=== PATIENT | female | born 1955 | race American Indian/Alaskan Native ===

== ENCOUNTER 2016-12-13 23:54 | Inpatient (IN) | payer MEDICARE ==
[2016-12-14] MEDS ORDERED: TRIDIL DRIP 50MG/250ML 50 MG/250 ML BOTTLE ONE ×2 (00:06→04:03)
[2016-12-14] MEDS: TRIDIL DRIP 50MG/250ML 50 MG/250 ML BOTTLE IV ONE ×2 (00:12→04:08)
--- NOTE | 2016-12-14 00:19 | Emergency Department Report ---
ED Shortness of Breath HPI - General Chief Complaint: Dyspnea/Respdistress Stated Complaint: RESPIRATORY DISTRESS Time Seen by Provider: 12/14/16 00:16 Source: family, EMS (verbal report received from EMS.ems notes not available at time of chart dictation), RN notes reviewed Mode of arrival: Stretcher Limitations: Other (patient in severe respiratory distress upon arrival) - History of Present Illness Initial Comments: This is a 61-year-old female, the patient is previously unknown to this provider , she has a past medical history of end-stage renal disease on dialysis, typically gets dialyzed Tuesday, Tuesday, Tuesday, patient reports missing last dialysis session, brought to the hospital by EMS in severe respiratory distress. Patient had JVD, crackles and rales, was tachypnea, with work of breathing that was severe. Patient started empirically on BiPAP therapy, high dose nitroglycerin therapy, with multiple IV boluses administered by myself of IV nitroglycerin; 500 g, 600 g 3. The patient improved, blood pressure went from the low 200s to the 150s, patient's work of breathing improved, her diaphoresis improved, still having some crackles and rales. Case discussed with nephrology on-call, Dr. Pablito See, who is going to arrange for emergent dialysis, patient does make urine, so he recommended 100 mg of Lasix. Case presented to the Hospital physician, Dr. Luo, and she accepted the patient to her service. Presently, the patient is on BiPAP therapy, endorses that she feels improved, and is still on a nitroglycerin drip. She is not having chest pain, and she was able to tell me that her body service team member Dr. Ani Echeverria. She further informed me that she missed her dialysis on Tuesday. MD Complaint: shortness of breath -: Gradual Consistency: constant Improves With: upright position, medication Worsens With: lying flat, exertion Known History Of: other (esrd) Context: other (noncompliance with dialysis therapy) - Related Data Home Medications Medication Instructions Recorded Confirmed Last Taken Aspirin [Adult Low Dose Aspirin EC] 81 mg PO DAILY 12/15/16 12/15/16 12/13/16 Metoprolol Tartrate 25 mg PO BID 12/15/16 12/15/16 12/13/16 Valsartan [Diovan] 320 mg PO DAILY 12/15/16 12/15/16 12/13/16 Allergies Allergy/AdvReac Type Severity Reaction Status Date / Time No Known Allergies Allergy Verified 12/14/16 00:12 ED Review of Systems ROS: Stated complaint: RESPIRATORY DISTRESS Other details as noted in HPI Comment: Unobtainable due to pts medical conditions Constitutional: malaise. denies: fever Eyes: denies: vision change Respiratory: shortness of breath Cardiovascular: edema. denies: chest pain Gastrointestinal: vomiting Genitourinary: as per HPI Musculoskeletal: as per HPI Skin: as per HPI Neurological: as per HPI Psychiatric: as per HPI ED Past Medical Hx - Past Medical History Previous Medical History?: Yes Hx Hypertension: Yes Hx Renal Disease: Yes (HD q mon, wed. fri) Additional medical history: PE - Surgical History Past Surgical History?: Yes Additional Surgical History: Shunt - Social History Smoking Status: Current Every Day Smoker - Medications Home Medications: Home Medications Medication Instructions Recorded Confirmed Last Taken Type Aspirin [Adult Low Dose Aspirin EC] 81 mg PO DAILY 12/15/16 12/15/16 12/13/16 History Metoprolol Tartrate 25 mg PO BID 12/15/16 12/15/16 12/13/16 History Valsartan [Diovan] 320 mg PO DAILY 12/15/16 12/15/16 12/13/16 History ED Physical Exam - General Limitations: Other General appearance: alert, in distress - Head Head exam: Present: atraumatic, normocephalic - Eye Eye exam: Present: normal appearance - ENT ENT exam: Present: normal orophraynx, mucous membranes moist - Neck Neck exam: Present: normal inspection, full ROM - Respiratory Respiratory exam: Present: respiratory distress, rales, rhonchi, accessory muscle use - Cardiovascular Cardiovascular Exam: Present: normal rhythm, tachycardia, normal heart sounds, JVD (4-5 cm of jugular venous distention bilaterally). Absent: systolic murmur , diastolic murmur, rubs, gallop - GI/Abdominal GI/Abdominal exam: Present: soft, normal bowel sounds. Absent: distended, tenderness, guarding, rebound, rigid, pulsatile mass - Extremities Exam Extremities exam: Present: normal inspection, full ROM, normal capillary refill , pedal edema, other (left upper extremity AV fistula, appropriate thrill.). Absent: calf tenderness - Back Exam Back exam: Present: normal inspection - Neurological Exam Neurological exam: Present: alert, oriented X3, other (Extraocular movements intact. Tongue midline. No facial droop. Facial sensation intact to light touch in the V1, V2, V3 distribution bilaterally. 5 and 5 strength in 4 extremities.. Sensation is intact to light touch in 4 extremities.). Absent: motor sensory deficit - Psychiatric Psychiatric exam: Present: normal affect, normal mood - Skin Skin exam: Present: warm, dry, intact, normal color. Absent: rash ED Course Vital Signs 12/14/16 12/14/16 12/14/16 00:00 00:06 00:10 Temperature Pulse Rate 104 H 95 H 88 Respiratory 24 34 H 34 H Rate Blood Pressure 193/101 193/101 171/95 Blood Pressure 193/101 [Right] O2 Sat by Pulse 99 98 98 Oximetry O2 Sat by Pulse Oximetry [ Anterior Bilateral Throughout] 12/14/16 12/14/16 12/14/16 00:15 00:20 00:26 Temperature Pulse Rate 86 85 80 Respiratory 34 H 38 H 31 H Rate Blood Pressure 170/93 170/93 170/93 Blood Pressure [Right] O2 Sat by Pulse 99 100 99 Oximetry O2 Sat by Pulse Oximetry [ Anterior Bilateral Throughout] 12/14/16 12/14/16 12/14/16 00:30 00:36 00:40 Temperature 98 F Pulse Rate 81 77 76 Respiratory 34 H 27 H 29 H Rate Blood Pressure 177/86 177/86 177/86 Blood Pressure 177/86 [Right] O2 Sat by Pulse 100 99 100 Oximetry O2 Sat by Pulse Oximetry [ Anterior Bilateral Throughout] 12/14/16 12/14/16 12/14/16 00:46 00:50 00:56 Temperature Pulse Rate 78 77 77 Respiratory 31 H 29 H 28 H Rate Blood Pressure 177/86 168/82 168/82 Blood Pressure [Right] O2 Sat by Pulse 100 100 99 Oximetry O2 Sat by Pulse Oximetry [ Anterior Bilateral Throughout] 12/14/16 12/14/16 12/14/16 00:58 01:00 01:05 Temperature Pulse Rate 78 74 Respiratory 29 H 30 H 26 H Rate Blood Pressure 168/82 164/80 Blood Pressure [Right] O2 Sat by Pulse 97 99 98 Oximetry O2 Sat by Pulse Oximetry [ Anterior Bilateral Throughout] 12/14/16 12/14/16 12/14/16 01:10 01:16 01:20 Temperature Pulse Rate 75 76 74 Respiratory 25 H 22 21 Rate Blood Pressure 164/80 154/78 163/88 Blood Pressure [Right] O2 Sat by Pulse 99 99 100 Oximetry O2 Sat by Pulse Oximetry [ Anterior Bilateral Throughout] 12/14/16 12/14/16 12/14/16 01:26 01:30 01:36 Temperature Pulse Rate 74 76 75 Respiratory 23 19 25 H Rate Blood Pressure 159/77 168/74 146/69 Blood Pressure [Right] O2 Sat by Pulse 100 100 100 Oximetry O2 Sat by Pulse Oximetry [ Anterior Bilateral Throughout] 12/14/16 12/14/16 12/14/16 01:40 01:46 01:50 Temperature Pulse Rate 74 78 73 Respiratory 23 28 H 23 Rate Blood Pressure 147/75 149/73 152/77 Blood Pressure [Right] O2 Sat by Pulse 100 99 100 Oximetry O2 Sat by Pulse Oximetry [ Anterior Bilateral Throughout] 12/14/16 12/14/16 12/14/16 01:56 02:00 02:05 Temperature Pulse Rate 76 73 71 Respiratory 26 H 25 H 24 Rate Blood Pressure 153/80 143/76 143/70 Blood Pressure [Right] O2 Sat by Pulse 100 100 100 Oximetry O2 Sat by Pulse Oximetry [ Anterior Bilateral Throughout] 12/14/16 12/14/16 12/14/16 02:06 02:10 02:16 Temperature Pulse Rate 76 73 72 Respiratory 24 26 H 23 Rate Blood Pressure 151/74 161/71 145/76 Blood Pressure [Right] O2 Sat by Pulse 100 100 100 Oximetry O2 Sat by Pulse Oximetry [ Anterior Bilateral Throughout] 12/14/16 12/14/16 12/14/16 02:20 02:26 02:30 Temperature Pulse Rate 72 78 84 Respiratory 25 H 25 H 31 H Rate Blood Pressure 145/78 151/76 149/76 Blood Pressure [Right] O2 Sat by Pulse 100 100 100 Oximetry O2 Sat by Pulse Oximetry [ Anterior Bilateral Throughout] 12/14/16 12/14/16 12/14/16 02:35 02:42 02:46 Temperature Pulse Rate 73 73 71 Respiratory 19 24 25 H Rate Blood Pressure 166/71 149/73 143/70 Blood Pressure [Right] O2 Sat by Pulse 100 100 100 Oximetry O2 Sat by Pulse Oximetry [ Anterior Bilateral Throughout] 10/12/14/16 12/14/16 02:50 02:55 03:00 Temperature Pulse Rate 72 74 74 Respiratory 21 24 25 H Rate Blood Pressure 131/69 140/72 141/73 Blood Pressure [Right] O2 Sat by Pulse 100 99 100 Oximetry O2 Sat by Pulse Oximetry [ Anterior Bilateral Throughout] 12/14/16 12/14/16 12/14/16 03:05 03:10 03:15 Temperature Pulse Rate 74 73 72 Respiratory 22 16 22 Rate Blood Pressure 140/71 146/68 142/68 Blood Pressure [Right] O2 Sat by Pulse 99 99 100 Oximetry O2 Sat by Pulse Oximetry [ Anterior Bilateral Throughout] 12/14/16 12/14/16 12/14/16 03:20 03:25 03:30 Temperature Pulse Rate 70 73 70 Respiratory 25 H 13 22 Rate Blood Pressure 141/67 130/68 140/67 Blood Pressure [Right] O2 Sat by Pulse 99 100 100 Oximetry O2 Sat by Pulse Oximetry [ Anterior Bilateral Throughout] 12/14/16 12/14/16 12/14/16 03:35 03:40 03:45 Temperature Pulse Rate 69 67 69 Respiratory 20 20 19 Rate Blood Pressure 127/63 131/61 123/61 Blood Pressure [Right] O2 Sat by Pulse 100 100 100 Oximetry O2 Sat by Pulse Oximetry [ Anterior Bilateral Throughout] 12/14/16 12/14/16 12/14/16 03:50 03:55 04:00 Temperature Pulse Rate 72 77 69 Respiratory 20 20 17 Rate Blood Pressure 128/67 127/65 126/63 Blood Pressure [Right] O2 Sat by Pulse 100 100 100 Oximetry O2 Sat by Pulse Oximetry [ Anterior Bilateral Throughout] 12/14/16 12/14/16 12/14/16 04:05 04:10 04:15 Temperature Pulse Rate 74 70 73 Respiratory 20 19 20 Rate Blood Pressure 126/67 124/62 128/67 Blood Pressure [Right] O2 Sat by Pulse 100 100 100 Oximetry O2 Sat by Pulse Oximetry [ Anterior Bilateral Throughout] 12/14/16 12/14/16 12/14/16 04:20 04:25 04:30 Temperature Pulse Rate 73 71 74 Respiratory 22 20 24 Rate Blood Pressure 126/67 125/65 129/62 Blood Pressure [Right] O2 Sat by Pulse 99 100 100 Oximetry O2 Sat by Pulse Oximetry [ Anterior Bilateral Throughout] 12/14/16 12/14/1612/14/17 04:35 04:50 05:00 Temperature 98.2 F Pulse Rate 74 75 73 Respiratory 21 20 Rate Blood Pressure 130/61 136/66 138/64 Blood Pressure [Right] O2 Sat by Pulse 100 Oximetry O2 Sat by Pulse 100 Oximetry [ Anterior Bilateral Throughout] 12/14/16 12/14/16 12/14/16 05:15 05:30 05:45 Temperature Pulse Rate 72 78 76 Respiratory Rate Blood Pressure 153/70 157/72 156/77 Blood Pressure [Right] O2 Sat by Pulse Oximetry O2 Sat by Pulse Oximetry [ Anterior Bilateral Throughout] 12/14/16 12/14/16 12/14/16 06:00 06:15 06:30 Temperature Pulse Rate 80 79 80 Respiratory Rate Blood Pressure 144/64 123/64 122/62 Blood Pressure [Right] O2 Sat by Pulse Oximetry O2 Sat by Pulse Oximetry [ Anterior Bilateral Throughout] 12/14/16 12/14/16 12/14/16 06:45 07:00 07:15 Temperature Pulse Rate 81 81 80 Respiratory Rate Blood Pressure 122/68 136/71 116/69 Blood Pressure [Right] O2 Sat by Pulse Oximetry O2 Sat by Pulse Oximetry [ Anterior Bilateral Throughout] 12/14/16 12/14/16 12/14/16 07:30 07:45 08:21 Temperature 98.2 F Pulse Rate 80 79 77 Respiratory 20 19 Rate Blood Pressure 111/65 136/75 Blood Pressure [Right] O2 Sat by Pulse Oximetry O2 Sat by Pulse 100 Oximetry [ Anterior Bilateral Throughout] 12/14/16 12/14/16 12/14/16 08:30 09:00 09:30 Temperature Pulse Rate 76 80 69 Respiratory 16 16 18 Rate Blood Pressure 139/73 133/69 113/49 Blood Pressure [Right] O2 Sat by Pulse 100 100 100 Oximetry O2 Sat by Pulse Oximetry [ Anterior Bilateral Throughout] 12/14/16 12/14/16 12/14/16 10:00 10:30 11:00 Temperature Pulse Rate 76 80 78 Respiratory 17 25 H 16 Rate Blood Pressure 146/74 146/74 133/76 Blood Pressure [Right] O2 Sat by Pulse 100 94 100 Oximetry O2 Sat by Pulse Oximetry [ Anterior Bilateral Throughout] 12/14/16 12/14/16 12/14/16 11:30 12:06 12:30 Temperature Pulse Rate 83 73 74 Respiratory 12 21 Rate Blood Pressure 133/76 133/76 141/72 Blood Pressure [Right] O2 Sat by Pulse 100 100 Oximetry O2 Sat by Pulse Oximetry [ Anterior Bilateral Throughout] 12/14/16 12/14/16 12/14/16 13:00 13:30 14:00 Temperature Pulse Rate 71 71 69 Respiratory 17 17 15 Rate Blood Pressure 144/65 140/62 140/62 Blood Pressure [Right] O2 Sat by Pulse 100 100 100 Oximetry O2 Sat by Pulse Oximetry [ Anterior Bilateral Throughout] 12/14/16 12/14/16 12/14/16 14:30 14:50 14:54 Temperature Pulse Rate 74 80 Respiratory 15 17 Rate Blood Pressure 143/61 131/70 140/62 Blood Pressure [Right] O2 Sat by Pulse 99 96 Oximetry O2 Sat by Pulse Oximetry [ Anterior Bilateral Throughout] ED Medical Decision Making - Lab Data Result diagrams: 12/14/16 00:10 12/14/16 00:10 Vital Signs 12/14/16 12/14/16 12/14/16 00:00 00:30 00:58 Temperature 98 F Pulse Rate 93 H 88 Respiratory 33 H 36 H 29 H Rate Blood Pressure 193/101 Blood Pressure 193/101 177/86 [Right] O2 Sat by Pulse 99 100 97 Oximetry Lab Results 12/14/16 12/14/16 12/14/16 Range/Units 00:10 00:10 00:10 WBC 8.3 (4.5-11.0) K/mm3 RBC 4.02 (3.65-5.03) M/mm3 Hgb 11.2 (10.1-14.3) gm/dl Hct 34.3 (30.3-42.9) % MCV 85 (79-97) fl MCH 28 (28-32) pg MCHC 33 (30-34) % RDW 14.7 (13.2-15.2) % Plt Count 243 (140-440) K/mm3 Lymph % (Auto) 40.5 H (13.4-35.0) % [place] % (Auto) 4.6 (0.0-7.3) % Eos % (Auto) 4.3 (0.0-4.3) % Baso % (Auto) 1.2 (0.0-1.8) % Lymph # 3.4 (1.2-5.4) K/mm3 [place] # 0.4 (0.0-0.8) K/mm3 Eos # 0.4 (0.0-0.4) K/mm3 Baso # 0.1 (0.0-0.1) K/mm3 Seg Neutrophils % 49.4 (40.0-70.0) % Seg Neutrophils # 4.1 (1.8-7.7) K/mm3 PT 14.1 (12.2-14.9) Sec. INR 1.04 (0.87-1.13) APTT 28.6 (24.2-36.6) Sec. Sodium 145 (137-145) mmol/L Potassium 4.0 (3.6-5.0) mmol/L Chloride 106.0 (98-107) mmol/L Carbon Dioxide 17 L (22-30) mmol/L Anion Gap 26 mmol/L BUN 55 H (7-17) mg/dL Creatinine 7.0 H (0.7-1.2) mg/dL Estimated GFR 7 ml/min BUN/Creatinine Ratio 8 % Glucose 270 H (65-100) mg/dL Calcium 8.1 L (8.4-10.2) mg/dL Total Bilirubin 0.30 (0.1-1.2) mg/dL AST 132 H (5-40) units/L ALT 127 H (7-56) units/L Alkaline Phosphatase 151 H (35-129) units/L Troponin T 0.011 (0.00-0.029) ng/mL Total Protein 6.5 (6.3-8.2) g/dL Albumin 3.5 L (3.9-5) g/dL Albumin/Globulin Ratio 1.2 % - EKG Data -: EKG Interpreted by Me - EKG Data 12/14/16 01:34 Sinus, 81 bpm, and QTc 482 ms, left ventricular hypertrophy, QTC prolonged, abnormal EKG, not morphologically consistent with STEMI - Radiology Data Radiology results: image reviewed interpreted by me: X-ray of the chest demonstrates congestive heart failure - Medical Decision Making Differential diagnosis: Electrolyte derangement, pulmonary edema, congestive heart failure Assessment and plan: 61-year-old female with pulmonary edema, responding nicely to nitro glycerin drip and BiPAP therapy. Patient reevaluated multiple times by myself while in the department, and is clinically much improved. Awaiting bed placement, and dialysis. Critical Care Time: Yes Critical care time in (mins) excluding proc time.: 45 Critical care attestation.: If time is entered above; I have spent that time in minutes in the direct care of this critically ill patient, excluding procedure time. ED Disposition Clinical Impression: Flash pulmonary edema Disposition: [id number] OP ADMIT IP TO THIS HOSP Is pt being admited?: Yes Condition: Good
[2016-12-14 00:56] LABS: Albumin 3.5 g/dL (3.9-5); Albumin/Globulin Ratio 1.2 %; Bilirubin,Total 0.3 mg/dL (0.1-1.2); Calcium 8.1 mg/dL (8.4-10.2); Total Protein 6.5 g/dL (6.3-8.2)
[2016-12-14 00:57] LABS: Basophils % (Auto) 1.2 % (0.0-1.8); Eosinophils % (Auto) 4.3 % (0.0-4.3); Hematocrit 34.3 % (30.3-42.9); Hemoglobin 11.2 gm/dl (10.1-14.3); Mean Corpuscular HGB Conc 33 % (30-34); Mean Corpuscular Hemoglobin 28 pg (28-32); Mean Corpuscular Volume 85 fl (79-97); Platelet Count 243 K/mm3 (140-440); Red Blood Count 4.02 M/mm3 (3.65-5.03); Red Cell Distribution Width 14.7 % (13.2-15.2); White Blood Count 8.3 K/mm3 (4.5-11.0)
[2016-12-14 01:06] LABS: INR 1.04 (0.87-1.13); Partial Thromboplastin Time 28.6 Sec. (24.2-36.6)
[2016-12-14] MEDS ORDERED: LASIX 100 MG in NACL 0.9% 50 ML IV ONE (01:15)
[2016-12-14] MEDS ORDERED: DULCOLAX PR PRN (02:19)
[2016-12-14] MEDS ORDERED: TYLENOL PO PRN (02:19)
[2016-12-14] MEDS ORDERED: ZOFRAN IV PRN (02:19)
[2016-12-14] MEDS ORDERED: MILK OF MAGNESIA PO PRN (02:19)
--- NOTE | 2016-12-14 02:19 | History and Physical Report ---
History of Present Illness Date of examination: 12/14/16 History of present illness: 61-year-old lady with a history of hypertension, end-stage renal disease on dialysis Tuesday, Tuesday, Tuesday because emergency room with complaint of acute shortness of breath. Patient states that she missed dialysis on Tuesday Review Of Systems: Constitutional: no weight loss Ears, eyes, nose, mouth and throat: no nasal congestion, no nasal discharge, no sinus pressure, blurry vision, diplopia Neck: No neck pain or rigidity. Cardiovascular: chest pain, orthopnea, palpitations Respiratory: No cough Gastrointestinal: abdominal pain, hematochezia Genitourinary : no dysuria, frequency , hematuria Musculoskeletal: no muscle ache Integumentary: no rash, no pruritis Neurological: no parathesias, focal weakness Endocrine: no cold or heat intolerance, no polyuria or polydipsia Hematologic/Lymphatic: no easy bruising, no easy bleeding, no gland swelling Allergic/Immunologic: no urticaria, no angioedema. PAST MEDICAL HISTORY:hypertension, end-stage renal disease on dialysis PAST SURGICAL HISTORY: AV fistula, cholecystectomy, hernia repair FAIMLY HISTORY: Hypertension SOCIAL HISTORY: Smokes one third pack a day, no alcohol or drug Medications and Allergies Allergies Allergy/AdvReac Type Severity Reaction Status Date / Time No Known Allergies Allergy Verified 12/14/16 00:12 Home Medications Medication Instructions Recorded Confirmed Last Taken Type Aspirin [Adult Low Dose Aspirin EC] 81 mg PO DAILY 12/15/16 12/15/16 12/13/16 History Metoprolol Tartrate 25 mg PO BID 12/15/16 12/15/16 12/13/16 History Valsartan [Diovan] 320 mg PO DAILY 12/15/16 12/15/16 12/13/16 History Active Meds: Active Medications Nitroglycerin/Dextrose (Tridil Drip 50mg/250ml) 50 mg in 250 mls @ 3 mls/hr IV TITR ONE; 10 MCG/MIN PRN Reason: Protocol Stop: 12/17/16 11:36 Last Admin: 12/14/16 00:12 Dose: 200 mcg/min, 60 mls/hr Exam - Physical Exam Narrative exam: Gen. appearance: Patient lying in bed in no acute distress HEENT: Normocephalic/atraumatic, pupils equal round reactive to light, extra alkaline movement intact, no scleral icterus, no JVD or thyromegaly or nodule, neck is supple, mucous membrane moist, no erythema or exudate Heart: S1-S2, regular rate and rhythm Lungs: Crackles bilateral breathing comfortable Abdomen: Positive bowel sounds, nontender, nondistended, no organomegaly Extremities: No edema, cyanosis, clubbing Neuro:: Oriented 3 , cranial nerves II-12 intact, speech, motor intact Skin: No rash, nodules, warm dry - Constitutional Vitals: Temp Pulse Resp BP Pulse Ox 98 F 88 29 H 177/86 97 12/14/16 00:30 12/14/16 00:30 12/14/16 00:58 12/14/16 00:30 12/14/16 00:58 Results - Labs CBC & Chem 7: 12/15/16 05:51 12/15/16 05:51 Labs: Abnormal lab results 12/14/16 12/14/16 Range/Units 00:10 00:10 Lymph % (Auto) 40.5 H (13.4-35.0) % Carbon Dioxide 17 L (22-30) mmol/L BUN 55 H (7-17) mg/dL Creatinine 7.0 H (0.7-1.2) mg/dL Glucose 270 H (65-100) mg/dL Calcium 8.1 L (8.4-10.2) mg/dL AST 132 H (5-40) units/L ALT 127 H (7-56) units/L Alkaline Phosphatase 151 H (35-129) units/L Albumin 3.5 L (3.9-5) g/dL - Imaging and Cardiology EKG: image reviewed Chest x-ray: image reviewed Assessment and Plan Assessment Acute respiratory failure Aute Pulmonary edema Hypertensive urgency End renal disease needing dialysis Plan Admit to medicine Continue nitroglycerin drip Check cardiac enzymes, will consult critical care, renal dialysis Dvt prophylaxis
[2016-12-14 03:15] LABS: Creatine Kinase MB 2.3 ng/mL (0.0-4.0)
--- NOTE | 2016-12-14 07:34 | XRay Report ---
AP CHEST: HISTORY: Short of breath No comparison. Moderate cardiomegaly and pulmonary venous congestion. Small right pleural effusion. No consolidation or pneumothorax. The bony structures are mildly demineralized but intact. IMPRESSION: CHF.
--- NOTE | 2016-12-14 09:10 | Consultation ---
History of Present Illness Consult date: 12/14/16 Requesting physician: KELLIE EMERSON Reason for consult: other (Acute Hypoxemic Respiratory Failure; Acute Pulmonary Edema; ESRD on Dialysis) History of present illness: PULMONARY/CCM CONSULT NOTE (Full dictation # [id number]) Please see dictated notes for full details Medications and Allergies Allergies Allergy/AdvReac Type Severity Reaction Status Date / Time No Known Allergies Allergy Verified 12/14/16 00:12 Active Meds: Active Medications Acetaminophen (Tylenol) 650 mg PO Q4H PRN PRN Reason: Pain MILD(1-3)/Fever >100.5/CLAUDIO Bisacodyl (Dulcolax) 10 mg WI QDAY PRN PRN Reason: Constipation unrelieved by MOM Enoxaparin Sodium (Lovenox) 30 mg SUB-Q QDAY MARIBELL Nitroglycerin/Dextrose (Tridil Drip 50mg/250ml) 50 mg in 250 mls @ 3 mls/hr IV TITR ONE; 10 MCG/MIN PRN Reason: Protocol Stop: 12/17/16 11:36 Last Admin: 12/14/16 04:08 Dose: 200 mcg/min, 60 mls/hr Magnesium Hydroxide (Milk Of Magnesia) 30 ml PO Q4H PRN PRN Reason: Constipation Ondansetron HCl (Zofran) 4 mg IV Q8H PRN PRN Reason: N/V unrelieved by Reglan Physical Examination Vital signs: Vital Signs Pulse Resp BP Pulse Ox 94 H 33 H 193/101 99 12/14/16 00:00 12/14/16 00:00 12/14/16 00:00 12/14/16 00:00 Results - Laboratory Findings CBC and BMP: 12/14/16 00:10 12/14/16 00:10 PT/INR, D-dimer PT 14.1 Sec. (12.2-14.9) 12/14/16 00:10 INR 1.04 (0.87-1.13) 12/14/16 00:10
[2016-12-14 09:17] LABS: Creatine Kinase MB 2.9 ng/mL (0.0-4.0)
[2016-12-14] MEDS: LOVENOX SUB-Q SCH (10:36)
--- NOTE | 2016-12-14 11:46 | Progress Note ---
Assessment and Plan Assessment and plan: Acute respiratory failure -Continue O2 for supportive care. Pulmonary following. Aute Pulmonary edema. -Nitroglycerin drip has been discontinued. Continue hemodialysis for volume control. Accelerated hypertension. -Resume home antihypertensive medications End renal disease needing dialysis -Continue hemodialysis per nephrology. History Interval history: No new issues overnight. Hospitalist Physical - Constitutional Vitals: Temp Pulse Resp BP Pulse Ox 98.2 F 76 17 146/74 100 12/14/16 07:45 12/14/16 10:00 12/14/16 10:00 12/14/16 10:00 12/14/16 10:00 General appearance: Present: no acute distress, well-nourished - EENT Eyes: Present: PERRL, EOM intact ENT: hearing intact, clear oral mucosa, dentition normal - Neck Neck: Present: supple, normal ROM - Respiratory Respiratory effort: normal Respiratory: bilateral: CTA - Cardiovascular Rhythm: regular Heart Sounds: Present: S1 & S2. Absent: gallop, rub - Extremities Extremities: no ischemia, No edema, Full ROM - Abdominal General gastrointestinal: soft, non-tender, non-distended, normal bowel sounds - Integumentary Integumentary: Present: clear, warm, dry - Neurologic Neurologic: CNII-XII intact, moves all extremities Results - Labs CBC & Chem 7: 12/14/16 00:10 12/14/16 00:10 Labs: Laboratory Last Values WBC 8.3 K/mm3 (4.5-11.0) 12/14/16 00:10 RBC 4.02 M/mm3 (3.65-5.03) 12/14/16 00:10 Hgb 11.2 gm/dl (10.1-14.3) 12/14/16 00:10 Hct 34.3 % (30.3-42.9) 12/14/16 00:10 MCV 85 fl (79-97) 12/14/16 00:10 MCH 28 pg (28-32) 12/14/16 00:10 MCHC 33 % (30-34) 12/14/16 00:10 RDW 14.7 % (13.2-15.2) 12/14/16 00:10 Plt Count 243 K/mm3 (140-440) 12/14/16 00:10 Lymph % (Auto) 40.5 % (13.4-35.0) H 12/14/16 00:10 [place] % (Auto) 4.6 % (0.0-7.3) 12/14/16 00:10 Eos % (Auto) 4.3 % (0.0-4.3) 12/14/16 00:10 Baso % (Auto) 1.2 % (0.0-1.8) 12/14/16 00:10 Lymph # 3.4 K/mm3 (1.2-5.4) 12/14/16 00:10 [place] # 0.4 K/mm3 (0.0-0.8) 12/14/16 00:10 Eos # 0.4 K/mm3 (0.0-0.4) 12/14/16 00:10 Baso # 0.1 K/mm3 (0.0-0.1) 12/14/16 00:10 Seg Neutrophils % 49.4 % (40.0-70.0) 12/14/16 00:10 Seg Neutrophils # 4.1 K/mm3 (1.8-7.7) 12/14/16 00:10 PT 14.1 Sec. (12.2-14.9) 12/14/16 00:10 INR 1.04 (0.87-1.13) 12/14/16 00:10 APTT 28.6 Sec. (24.2-36.6) 12/14/16 00:10 Sodium 145 mmol/L (137-145) 12/14/16 00:10 Potassium 4.0 mmol/L (3.6-5.0) 12/14/16 00:10 Chloride 106.0 mmol/L (98-107) 12/14/16 00:10 Carbon Dioxide 17 mmol/L (22-30) L 12/14/16 00:10 Anion Gap 26 mmol/L 12/14/16 00:10 BUN 55 mg/dL (7-17) H 12/14/16 00:10 Creatinine 7.0 mg/dL (0.7-1.2) H 12/14/16 00:10 Estimated GFR 7 ml/min 12/14/16 00:10 BUN/Creatinine Ratio 8 % 12/14/16 00:10 Glucose 270 mg/dL (65-100) H 12/14/16 00:10 Calcium 8.1 mg/dL (8.4-10.2) L 12/14/16 00:10 Total Bilirubin 0.30 mg/dL (0.1-1.2) 12/14/16 00:10 AST 132 units/L (5-40) H 12/14/16 00:10 ALT 127 units/L (7-56) H 12/14/16 00:10 Alkaline Phosphatase 151 units/L (35-129) H 12/14/16 00:10 Total Creatine Kinase 102 units/L (30-135) 12/14/16 08:39 CK-MB (CK-2) 2.9 ng/mL (0.0-4.0) 12/14/16 08:39 CK-MB (CK-2) Rel Index 2.8 (0-4) 12/14/16 08:39 Troponin T 0.044 ng/mL (0.00-0.029) H D 12/14/16 08:39 NT-Pro-B Natriuret Pep 97520 pg/mL (0-900) H 12/14/16 00:10 Total Protein 6.5 g/dL (6.3-8.2) 12/14/16 00:10 Albumin 3.5 g/dL (3.9-5) L 12/14/16 00:10 Albumin/Globulin Ratio 1.2 % 12/14/16 00:10 Triglycerides 50 mg/dL (2-149) 12/14/16 08:39 Cholesterol 183 mg/dL (50-199) 12/14/16 08:39 LDL Cholesterol Direct 93 mg/dL (50-130) 12/14/16 08:39 HDL Cholesterol 80 mg/dL (40-59) H 12/14/16 08:39 Cholesterol/HDL Ratio 2.28 % 12/14/16 08:39
--- NOTE | 2016-12-14 13:44 | Consultation ---
History of Present Illness - Reason for Consult Consult date: 12/14/16 end stage renal disease, hyperkalemia Requesting physician: KELLIE EMERSON - History of Present Illness This is a 61 year old female with PMH of ESRD on HD and hypertension who presented to [facility] ED yesterday with complaints of worsening shortness of breath. Status post Chest X Ray today showed CHF. Patient states she missed her HD treatment yesterday because of transportation issues, states her nephew didn' t take her to dialysis. Patient states she now has transportation service arranged to transport her to dialysis. This patient undergoes outpatient HD at [facility] in [place], [place] every Tuesday, Tuesday, and Tuesday. Last HD treatment as an outpatient was on 12/10/16. Her regular outpatient tap out operator is Dr Ani Sheridan with [facility]. BNP level was 81,052 today. Patient reports vomiting dark brown emesis with streaks of blood noted about 5 minutes prior to my examation, I notified patient's primary nurse about updating primary team. Patient denies chest pain, abdominal pain, black or bloody stools , numbness, tingling, blackouts, fever, dysuria, hematuria, headache, or change in vision. We were consulted to evaluate this patient who has ESRD and requires HD. Patient s/p STAT HD early this morning at 0450, ended around 0750. We will follow patient throughout hospitalization. Past History Past Medical History: anemia, dialysis, ESRD, hypertension Past Surgical History: Other (Left AVF placement) Medications and Allergies Allergies Allergy/AdvReac Type Severity Reaction Status Date / Time No Known Allergies Allergy Verified 12/14/16 00:12 Active Meds: Active Medications Acetaminophen (Tylenol) 650 mg PO Q4H PRN PRN Reason: Pain MILD(1-3)/Fever >100.5/CLAUDIO Bisacodyl (Dulcolax) 10 mg NC QDAY PRN PRN Reason: Constipation unrelieved by MOM Enoxaparin Sodium (Lovenox) 30 mg SUB-Q QDAY MARIBELL Last Admin: 12/14/16 10:36 Dose: 30 mg Famotidine (Pepcid) 20 mg PO QDAY MARIBELL Magnesium Hydroxide (Milk Of Magnesia) 30 ml PO Q4H PRN PRN Reason: Constipation Ondansetron HCl (Zofran) 4 mg IV Q8H PRN PRN Reason: N/V unrelieved by Reglan Review of Systems Constitutional: fatigue, no fever Ears, nose, mouth and throat: no headache Cardiovascular: shortness of breath, dyspnea on exertion, no leg edema Respiratory: cough with sputum, shortness of breath, dyspnea on exertion Gastrointestinal: nausea, vomiting, no abdominal pain, no diarrhea, no constipation Musculoskeletal: no arm numbness/tingling, no leg numbness/tingling Integumentary: no sores, no wounds Neurological: no weakness, no numbness, no tingling, no seizures, no headaches Psychiatric: no anxiety Endocrine: fatigue Exam - Vital Signs Vital signs: Vital Signs Pulse Resp BP Pulse Ox 94 H 33 H 193/101 99 12/14/16 00:00 12/14/16 00:00 12/14/16 00:00 12/14/16 00:00 - General Appearance General appearance: well-developed (no acute distress) EENT: ATNC Neck: Present: neck supple Respiratory: Other (Lung sounds decreased bilaterally, unlabored) Heart: regular, S1S2, other (ACCESS: Left AVF with positive thrill and bruit noted) Gastrointestinal: Present: normoactive bowel sounds. Absent: tenderness, distended Integumentary: warm and dry Neurologic: alert and oriented x3 Musculoskeletal: Present: other (no edema to both lower extremities) Psychiatric: mood/affect appropriate, cooperative Results - Lab Results 12/14/16 00:10 12/14/16 00:10 Most recent lab results Calcium 8.1 mg/dL (8.4-10.2) L 12/14/16 00:10 Assessment and Plan - Patient Problems (1) Acute pulmonary edema Current Visit: Yes Status: Acute Plan to address problem: Status post Hemodialysis today for ultrafiltration and clearance via Left AVF, UF removed 3 liters (2) ESRD (end stage renal disease) on dialysis Current Visit: Yes Status: Acute Plan to address problem: Status post Hemodialysis today for ultrafiltration and clearance via Left AVF, UF removed 3 liters Assess need for HD on daily basis Hemodialysis tomorrow for ultrafiltration and clearance Renally dose medications Renal diet Maintain fluid restriction of 1 liter per day Chest X Ray showed CHF Obtain daily weight Strict intake and output Renal plan discussed with Dr See Continue supportive therapy (3) Metabolic acidosis Current Visit: Yes Status: Acute Plan to address problem: Non-Anion Gap Metabolic Acidosis worsened in setting of renal failure/ missed HD treatment Status post Hemodialysis today for ultrafiltration and clearance Monitor daily labs (4) Hypertensive CKD, ESRD on dialysis Current Visit: Yes Status: Acute Plan to address problem: Admitted with hypertensive urgency, s/p Hemodialysis, off nitroglycerin drip, blood pressure now stable in the 120s systolic over 60s diastolic Continue to monitor
--- NOTE | 2016-12-15 00:25 | Consultation ---
PULMONARY CRITICAL CARE EVALUATION CONSULTING PHYSICIAN: Dr. Luo. REASON FOR CONSULTATION: Acute hypoxemic respiratory failure and acute pulmonary edema. CHIEF COMPLAINT AND HISTORY OF PRESENT ILLNESS: As follows: The patient is a pleasant 61-year-old -[place] female with past medical history significant for a diagnosis of end-stage renal disease, dialysis Tuesday, Tuesday and Tuesday, who did not miss any dialysis session that is what she told me; however, she apparently told the ER physician she had missed her last dialysis session, which would have been due yesterday on the day of presentation. She states she got home, tried to climb up the stairs to bed and noticed some dyspnea on exertion. No chest pains, went to sleep. She woke up out of her sleep with an episode of paroxysmal nocturnal dyspnea. She tried to get to the bathroom, had to sit up on the side of the bed. She was coughing. It was a dry cough. No chest pains. No palpitations. She was brought to the ER. In the ER, she was found in severe respiratory distress and clinically volume overloaded. She was started on IV nitroglycerin therapy. Blood pressure was elevated at 200. When I stopped by to see her, she was feeling better. She still remained on 50% Ventimask at that time. She had just undergone emergency dialysis. Again, she denied gross or streaky hemoptysis. Symptoms were relieved by sitting upright and worsened by lying flat. She denied vomiting or overt aspiration. She denied new leg pain or swelling either unilaterally or bilaterally. She does admit to a 10+ pack year tobacco smoking history and continues to smoke half a pack of tobacco a day. That is as much of the history of presentation as I have. PAST MEDICAL HISTORY: End-stage renal disease, on dialysis; history of hypertension. Reportedly, also has a history of pulmonary embolus in the past. PAST SURGICAL HISTORY: She has a left upper extremity AV graft. She has had a cholecystectomy and hernia repair. MEDICATIONS: She was on at the time I stopped by to see have been reviewed. Pertinent positives include nitroglycerin drip going at 10 mcg per minute, Lovenox 30 mg subQ daily. P.r.n. Zofran. She had received 100 mg of Lasix IV earlier. ALLERGIES: No known drug allergies. DIET: Thin lady, denies acute weight loss or gain in the preceding few weeks to months. FAMILY AND SOCIAL HISTORY: She has a 10+ pack year tobacco smoking history. Denies alcohol or illicit drug use or abuse. There is a family history of hypertension. REVIEW OF SYSTEMS: No overt loss of consciousness. No new onset seizures. No new onset focal weakness. No chest pains. No nausea, no vomiting, no dysuria, no hematuria. Complete 14-system review of systems obtained. Pertinent positives and/or negatives as in body of the history above, otherwise noncontributory. PHYSICAL EXAMINATION: VITAL SIGNS: At presentation, she was afebrile, temperature was 98.6, pulse was 94, respiratory rate 33, blood pressure 193/101, oxygen sats were 99%. Inspired oxygen concentration was not recorded. GENERAL: She is lying in bed in mild respiratory distress, no accessory muscle use. She has a 50% Ventimask over her face. She still looks anxious. Thin without temporal wasting. HEAD, EYES, EARS, NOSE AND THROAT: Pupils are equal, round, about 3-4 mm, reactive to light. Extraocular muscle movements were intact. Oropharynx is a Mallampati #2 oropharynx, mild oropharyngeal pallor, partially dental loss. Oropharynx is moist. No gross jugular venous distention at the time of my examination. No goiter. Grossly, no palpable lymph nodes in the supraclavicular or submandibular lymph node chains. No thyromegaly. LUNGS: Auscultation of both lung garcia still significant for inspiratory bibasilar rales. No wheezing. HEART: Heart sounds 1 and 2 were heard. They were regular in rate and rhythm at time of my evaluation. No rubs, no murmurs. ABDOMEN: Soft. Bowel sounds are positive. Nontender. No hepatosplenomegaly. EXTREMITIES: Without overt digital clubbing. No cyanosis, no pedal edema. She has a left upper extremity AV graft. No bleeding. There is a bandage over the graft points. NEUROLOGIC: She moves all extremities. No fasciculations. No spasticity. PSYCHIATRIC: She has normal affect. Good insight. Little anxious. LABORATORY DATA: From my review are as follows: White cell count 8300, hemoglobin 11.2, hematocrit 34.3, platelets 243. INR 1.04, serum sodium 145, potassium 4.0, chloride 106, bicarbonate 17, BUN 55, creatinine 7.0, glucose 270, AST 132, ALT 127. BNP elevated at 81,000. Troponin 0.044. Lipid profile is pending. No microbiology studies. Chest x-ray was done. I have reviewed the chest x-ray myself. It shows increased interstitial markings bilaterally, blunting of both costophrenic angles, right greater than left. The film is partially rotated to the left. There is gross cardiomegaly. Right main pulmonary trunk is enlarged. No gross pneumothorax. No gross bony fractures. No focal consolidation, otherwise. ASSESSMENT AND PLAN: We have a middle-aged lady in with acute hypoxemic respiratory failure, likely related to pulmonary edema, perhaps an element of flash pulmonary edema certainly an element of missing dialysis. The assessment is as follows: 1. Acute hypoxemic respiratory failure, status post noninvasive ventilation. 2. Acute pulmonary edema. 3. End-stage renal disease, on dialysis, noncompliant with dialysis. 4. Hypertension with hypertensive urgency. 5. Metabolic acidosis. PLAN: 1. Continue supplemental oxygen to keep sats greater than or equal to about 94%. 2. Bilevel positive air pressure ventilation p.r.n. especially in case of increased work of breathing or worsened hypoxemia. 3. Hemodialysis with ultrafiltration to assist with volume clearance. 4. Continue nitroglycerin drip to improve blood pressure, but also to improve cardiovascular oxygen supply and reduce cardiac work. Aspiration precautions will be maintained. We will follow her off antibiotics. We will send sputum for Gram stain culture and sensitivities if she is making any. I should mention that 12-lead EKG has been reviewed. It shows normal sinus rhythm at 81 beats per minute, voltage criteria for left ventricular hypertrophy. She will be placed on GI prophylaxis. She is on DVT prophylaxis. Flu and pneumonia vaccination will be per protocol. Thank you very much for the consult. We will follow along and make further recommendations as picture progresses/becomes clearer. She is improving. She can be weaned off the IV nitroglycerin and she is on 50% oxygen. I will downgrade her to a telemetry floor, but observe her closely. JOB# [id number] MASOUD/YOUSUF
[2016-12-15 06:13] LABS: Basophils % (Auto) 0.6 % (0.0-1.8); Eosinophils % (Auto) 2.3 % (0.0-4.3); Hematocrit 31.4 % (30.3-42.9); Hemoglobin 10.4 gm/dl (10.1-14.3); Mean Corpuscular HGB Conc 33 % (30-34); Mean Corpuscular Hemoglobin 28 pg (28-32); Mean Corpuscular Volume 84 fl (79-97); Platelet Count 157 K/mm3 (140-440); Red Blood Count 3.74 M/mm3 (3.65-5.03); Red Cell Distribution Width 14.2 % (13.2-15.2); White Blood Count 7.3 K/mm3 (4.5-11.0)
[2016-12-15 06:39] LABS: Calcium 8.1 mg/dL (8.4-10.2); Chloride 103.8 mmol/L (98-107); Potassium 4.6 mmol/L (3.6-5.0)
--- NOTE | 2016-12-15 10:33 | Progress Note ---
Assessment and Plan Assessment and plan: Hematemesis. -Nephrology reports an episode that occurred yesterday per progress note. H&H remained stable. No new episodes. Acute respiratory failure -Continue O2 for supportive care. Pulmonary following. Aute Pulmonary edema. -Nitroglycerin drip has been discontinued. Continue hemodialysis for volume control. Accelerated hypertension. -Resume home antihypertensive medications End renal disease needing dialysis -Continue hemodialysis per nephrology. Disposition. -Anticipate discharge in a.m. if H&H stable History Interval history: No new issues overnight. Hospitalist Physical - Constitutional Vitals: Temp Pulse Resp BP Pulse Ox 98.5 F 58 L 18 149/66 94 12/15/16 08:00 12/15/16 08:00 12/15/16 08:00 12/15/16 08:00 12/15/16 08:00 General appearance: Present: no acute distress, well-nourished - EENT Eyes: Present: PERRL, EOM intact ENT: hearing intact, clear oral mucosa, dentition normal - Neck Neck: Present: supple, normal ROM - Respiratory Respiratory effort: normal Respiratory: bilateral: CTA - Cardiovascular Rhythm: regular Heart Sounds: Present: S1 & S2. Absent: gallop, rub - Extremities Extremities: no ischemia, No edema, Full ROM - Abdominal General gastrointestinal: soft, non-tender, non-distended, normal bowel sounds - Integumentary Integumentary: Present: clear, warm, dry - Neurologic Neurologic: CNII-XII intact, moves all extremities Results - Labs CBC & Chem 7: 12/15/16 05:51 12/15/16 05:51 Labs: Laboratory Last Values WBC 7.3 K/mm3 (4.5-11.0) 12/15/16 05:51 RBC 3.74 M/mm3 (3.65-5.03) 12/15/16 05:51 Hgb 10.4 gm/dl (10.1-14.3) 12/15/16 05:51 Hct 31.4 % (30.3-42.9) 12/15/16 05:51 MCV 84 fl (79-97) 12/15/16 05:51 MCH 28 pg (28-32) 12/15/16 05:51 MCHC 33 % (30-34) 12/15/16 05:51 RDW 14.2 % (13.2-15.2) 12/15/16 05:51 Plt Count 157 K/mm3 (140-440) 12/15/16 05:51 Lymph % (Auto) 23.7 % (13.4-35.0) 12/15/16 05:51 [place] % (Auto) 5.8 % (0.0-7.3) 12/15/16 05:51 Eos % (Auto) 2.3 % (0.0-4.3) 12/15/16 05:51 Baso % (Auto) 0.6 % (0.0-1.8) 12/15/16 05:51 Lymph # 1.7 K/mm3 (1.2-5.4) 12/15/16 05:51 [place] # 0.4 K/mm3 (0.0-0.8) 12/15/16 05:51 Eos # 0.2 K/mm3 (0.0-0.4) 12/15/16 05:51 Baso # 0.0 K/mm3 (0.0-0.1) 12/15/16 05:51 Seg Neutrophils % 67.6 % (40.0-70.0) 12/15/16 05:51 Seg Neutrophils # 4.9 K/mm3 (1.8-7.7) 12/15/16 05:51 PT 14.1 Sec. (12.2-14.9) 12/14/16 00:10 INR 1.04 (0.87-1.13) 12/14/16 00:10 APTT 28.6 Sec. (24.2-36.6) 12/14/16 00:10 Sodium 145 mmol/L (137-145) 12/15/16 05:51 Potassium 4.6 mmol/L (3.6-5.0) 12/15/16 05:51 Chloride 103.8 mmol/L (98-107) 12/15/16 05:51 Carbon Dioxide 25 mmol/L (22-30) D 12/15/16 05:51 Anion Gap 21 mmol/L 12/15/16 05:51 BUN 35 mg/dL (7-17) H 12/15/16 05:51 Creatinine 5.5 mg/dL (0.7-1.2) H 12/15/16 05:51 Estimated GFR 10 ml/min 12/15/16 05:51 BUN/Creatinine Ratio 6 % 12/15/16 05:51 Glucose 90 mg/dL (65-100) 12/15/16 05:51 Calcium 8.1 mg/dL (8.4-10.2) L 12/15/16 05:51 Total Bilirubin 0.30 mg/dL (0.1-1.2) 12/14/16 00:10 AST 132 units/L (5-40) H 12/14/16 00:10 ALT 127 units/L (7-56) H 12/14/16 00:10 Alkaline Phosphatase 151 units/L (35-129) H 12/14/16 00:10 Total Creatine Kinase 102 units/L (30-135) 12/14/16 08:39 CK-MB (CK-2) 2.9 ng/mL (0.0-4.0) 12/14/16 08:39 CK-MB (CK-2) Rel Index 2.8 (0-4) 12/14/16 08:39 Troponin T 0.044 ng/mL (0.00-0.029) H D 12/14/16 08:39 NT-Pro-B Natriuret Pep 48475 pg/mL (0-900) H 12/14/16 00:10 Total Protein 6.5 g/dL (6.3-8.2) 12/14/16 00:10 Albumin 3.5 g/dL (3.9-5) L 12/14/16 00:10 Albumin/Globulin Ratio 1.2 % 12/14/16 00:10 Triglycerides 50 mg/dL (2-149) 12/14/16 08:39 Cholesterol 183 mg/dL (50-199) 12/14/16 08:39 LDL Cholesterol Direct 93 mg/dL (50-130) 12/14/16 08:39 HDL Cholesterol 80 mg/dL (40-59) H 12/14/16 08:39 Cholesterol/HDL Ratio 2.28 % 12/14/16 08:39
[2016-12-15] MEDS: PEPCID PO SCH (10:38)
[2016-12-15] MEDS: LOVENOX SUB-Q SCH (10:38)
--- NOTE | 2016-12-15 14:00 | Progress Note ---
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 HD today. CXR was congested. -Check CXR tomorrow for volume status, if congested may do extra HD again tomorrow, will eval for HD tomorrow based on volume status. -Renally dose all meds -Check BMP/Mg/Phos daily Essential Hypertension: -Adjust BP meds to keep SBP <140 in the setting of ESRD Metabolic acidosis: -Improved with HD. Monitor. Anemia of chronic disease due to ESRD: -Epogen to keep Hg 10-12 Hematemesis: -hg stable, management per primary Osvaldo Rowell MD Nephrology, Hypertension, Dialysis, Transplantation Phone no: [phone] Subjective Date of service: 12/15/16 Interval history: s/p HD yesterday, Denies CP/SHOB. Plan for HD today. Objective - Exam Narrative Exam: GE: AAOX3 HEEENT: PERRLA Neck: No JVD Chest: CTAB CVS: RRR Abd: Soft/NT/ND/BS+ Ext: No cce, LUE AVF with good thrill Psych: Appropriate mood - Vital Signs Vital signs: Vital Signs - 12hr 12/15/16 12/15/16 12/15/16 04:37 08:00 13:30 Temperature 98.5 F 98.5 F 98.0 F Pulse Rate 63 58 L 68 Respiratory 20 18 18 Rate Blood Pressure 127/67 156/76 Blood Pressure 149/66 [Right] O2 Sat by Pulse 100 94 Oximetry - Lab 12/15/16 05:51 12/15/16 05:51 Most recent lab results Calcium 8.1 mg/dL (8.4-10.2) L 12/15/16 05:51
--- NOTE | 2016-12-15 23:28 | Progress Note ---
Assessment and Plan Patient resting on Venturi mask, FIO2 50% and O2 saturation 100%. Patient says breathing better. Slight cough. No complaint of chest pain. - Patient Problems (1) Acute pulmonary edema Current Visit: Yes Status: Acute Plan to address problem: Clinically improving. Recommend repeat chest xray. (2) ESRD (end stage renal disease) on dialysis Current Visit: Yes Status: Acute Plan to address problem: Management as per nephrology. (3) Hypertensive urgency Current Visit: Yes Status: Acute Plan to address problem: Blood pressure improved. Management as per primary care. (4) Metabolic acidosis Current Visit: Yes Status: Acute Plan to address problem: Improved. HCO3 is 25. (5) Tobacco use disorder Current Visit: Yes Status: Acute Plan to address problem: Counselled to stop smoking. PFTs as out patient. Subjective Date of service: 12/15/16 Interval history: Patient resting on Venturi mask, FIO2 50% and O2 saturation 100%. Patient says breathing better. Slight cough. No complaint of chest pain. Objective Vital Signs - 12hr 12/15/16 12/15/16 12/15/16 12:00 13:30 13:45 Temperature 97.1 F L 98.0 F Pulse Rate 78 67 68 Respiratory 18 18 Rate Blood Pressure 153/74 154/74 Blood Pressure 164/78 [Right] O2 Sat by Pulse 94 Oximetry 12/15/16 12/15/16 12/15/16 14:00 14:15 14:30 Temperature Pulse Rate 68 73 63 Respiratory Rate Blood Pressure 164/78 146/78 165/60 Blood Pressure [Right] O2 Sat by Pulse Oximetry 12/15/16 12/15/16 12/15/16 14:45 15:00 15:15 Temperature Pulse Rate 59 L 55 L 56 L Respiratory Rate Blood Pressure 118/54 141/59 150/60 Blood Pressure [Right] O2 Sat by Pulse Oximetry 12/15/16 12/15/16 12/15/16 15:30 15:45 16:00 Temperature 98.0 F Pulse Rate 60 62 69 Respiratory 18 Rate Blood Pressure 152/60 154/64 150/74 Blood Pressure 158/74 [Right] O2 Sat by Pulse 94 Oximetry 12/15/16 12/15/16 12/15/16 16:15 16:30 16:45 Temperature Pulse Rate 64 60 64 Respiratory Rate Blood Pressure 152/76 150/72 152/70 Blood Pressure [Right] O2 Sat by Pulse Oximetry 12/15/16 12/15/16 12/15/16 17:07 19:47 21:33 Temperature 97.8 F 98.8 F Pulse Rate 68 65 Respiratory 18 18 Rate Blood Pressure 150/70 136/59 Blood Pressure [Right] O2 Sat by Pulse 100 100 Oximetry CBC and BMP: 12/15/16 05:51 12/15/16 05:51 ABG, PT/INR, D-dimer: PT/INR, D-dimer PT 14.1 Sec. (12.2-14.9) 12/14/16 00:10 INR 1.04 (0.87-1.13) 12/14/16 00:10 Abnormal lab findings: Abnormal Labs 12/14/16 12/15/16 08:39 05:51 BUN 35 H Creatinine 5.5 H Calcium 8.1 L Troponin T 0.044 H D HDL Cholesterol 80 H
[2016-12-16 06:06] LABS: Basophils % (Auto) 1.3 % (0.0-1.8); Eosinophils % (Auto) 5.8 % (0.0-4.3); Hemoglobin 11.5 gm/dl (10.1-14.3); Mean Corpuscular HGB Conc 34 % (30-34); Mean Corpuscular Hemoglobin 28 pg (28-32); Mean Corpuscular Volume 84 fl (79-97); Platelet Count 158 K/mm3 (140-440); Red Blood Count 4.07 M/mm3 (3.65-5.03); Red Cell Distribution Width 14.6 % (13.2-15.2); White Blood Count 5.6 K/mm3 (4.5-11.0)
[2016-12-16 06:23] LABS: Calcium 7.9 mg/dL (8.4-10.2); Chloride 97.9 mmol/L (98-107); Potassium 4.2 mmol/L (3.6-5.0)
[2016-12-16 08:23] VITALS: BP 144/63
--- NOTE | 2016-12-16 09:02 | XRay Report ---
AP CHEST: HISTORY: Congestion Pulmonary venous congestion has decreased. Small pleural effusions have resolved since the exam 2 days ago. The lungs are clear. Mild cardiomegaly is stable. IMPRESSION: Cardiomegaly. CHF has essentially resolved since the exam 2 days ago.
--- NOTE | 2016-12-16 10:00 | Progress Note ---
Assessment and Plan (1) Acute pulmonary edema Current Visit: Yes Status: Acute Plan to address problem: resolved with ultrafiltration (2) ESRD (end stage renal disease) on dialysis Current Visit: Yes Status: Acute Plan to address problem: no indication for HD today Ok to eb discharged from renal standpoint, she is scheduled to receive HD tomorrow as an outpatient Renally dose medications Renal diet Maintain fluid restriction of 1 liter per day Obtain daily weight Strict intake and output (3) Metabolic acidosis Current Visit: Yes Status: Acute Plan to address problem: resolved (4) Hypertensive CKD, ESRD on dialysis Current Visit: Yes Status: Acute Plan to address problem: improved with UF Subjective Date of service: 12/16/16 Principal diagnosis: ESRD on HD Interval history: tolerated HD yesterday, significant improvement in SOB Objective - Vital Signs Vital signs: Vital Signs - 12hr 12/15/16 12/16/16 12/16/16 22:00 00:01 04:27 Temperature 98.1 F 98.3 F Pulse Rate 72 63 64 Respiratory 19 18 Rate Blood Pressure 132/57 129/67 Blood Pressure [Right] O2 Sat by Pulse 100 100 Oximetry 12/16/16 12/16/16 08:10 08:22 Temperature 97.6 F Pulse Rate 67 64 Respiratory 16 Rate Blood Pressure Blood Pressure 144/63 [Right] O2 Sat by Pulse 98 94 Oximetry - General Appearance General appearance: well-developed, well-nourished, appears stated age EENT: ATNC, PERRL, mucous membranes moist Neck: no JVD, no carotid bruit Respiratory: Present: Clear to Ascultation. Absent: Rales, Ronchi Cardiology: regular, S1S2 Gastrointestinal: normoactive bowel sounds, no tenderness, no distended, no guarding Integumentary: no rash, warm and dry Neurologic: no focal deficit, no asterixis, alert and oriented x3 Musculoskeletal: other (no edema in BLE) Psychiatric: mood/affect appropriate, cooperative - Lab 12/16/16 05:23 12/16/16 05:23 Most recent lab results Calcium 7.9 mg/dL (8.4-10.2) L 12/16/16 05:23
[2016-12-16] MEDS: PEPCID PO SCH (10:05)
[2016-12-16] MEDS: LOVENOX SUB-Q SCH (10:05)
--- NOTE | 2016-12-16 10:11 | Discharge Summary ---
Providers - Providers Date of Admission: 12/14/16 02:19 Date of discharge: 12/16/16 Attending physician: LUZ ELENA MAGALLANES 12/14/16 04:21 Consult to Physician [CONS] Routine Consulting Provider: ANAT CH Reason For Exam: cc Place consult to:: CC FILEMAKER DEVELOPER Notified:: area secretary pl call Was contact made?: Yes If yes, spoke with:: A/Luz LANGE Time called:: 08:45 Primary care physician: RACE BOARD ATTENDANT Hospitalization Reason for admission: Volume overload Condition: Good Hospital course: This is a 61 year old female with PMH of ESRD on HD and hypertension who presented to [facility] ED with complaints of worsening shortness of breath. Her Chest X Ray showed CHF. Patient stated that she missed her HD treatment the day prior to admission because of transportation issues. She States her nephew didn't take her to dialysis. Patient states she now has transportation service arranged to transport her to dialysis. This patient undergoes outpatient HD at [facility] in [place], [place] every Tuesday, Tuesday, and Tuesday. Last HD treatment as an outpatient was on 12/10/16. Her regular outpatient circulation worker is Dr Ani Sheridan with [facility]. On admission labs. Her BMP was noted to be 81,052. After admission, patient underwent emergent hemodialysis. The patient was seen by nephrology consultation. Patient was also seen by pulmonary. Follow-up chest x-ray after hemodialysis and aggressive improvement throughout hospitalization revealed normalization. Therefore, patient is felt to have her see maximal hospital benefit. Dedicated discharge time 31 minutes. Disposition: TO HOME OR SELFCARE Time spent for discharge: 31 - Discharge Diagnoses (1) Acute pulmonary edema Status: Acute (2) ESRD (end stage renal disease) on dialysis Status: Acute (3) Hypertensive CKD, ESRD on dialysis Status: Acute Core Measure Documentation - Palliative Care Palliative Care/ Comfort Measures: Not Applicable - Core Measures Any of the following diagnoses?: none Exam - Constitutional Vitals: Temp Pulse Resp BP Pulse Ox 97.6 F 64 16 144/63 94 12/16/16 08:22 12/16/16 08:22 12/16/16 08:22 12/16/16 08:22 12/16/16 08:22 General appearance: Present: no acute distress, well-nourished - EENT Eyes: Present: PERRL ENT: hearing intact, clear oral mucosa - Neck Neck: Present: supple, normal ROM - Respiratory Respiratory effort: normal Respiratory: bilateral: CTA - Cardiovascular Heart Sounds: Present: S1 & S2. Absent: rub, click - Extremities Extremities: pulses symmetrical, No edema Peripheral Pulses: within normal limits - Abdominal General gastrointestinal: Present: soft, non-tender, non-distended, normal bowel sounds Female genitourinary: Present: normal - Integumentary Integumentary: Present: clear, warm, dry - Musculoskeletal Musculoskeletal: gait normal, strength equal bilaterally - Psychiatric Psychiatric: appropriate mood/affect, intact judgment & insight - Neurologic Neurologic: CNII-XII intact, moves all extremities Plan Activity: no restrictions Weight Bearing Status: Full Weight Bearing Diet: renal Follow up with: PRIMARY CAREMD [Primary Care Provider] - 3-5 Days
== END 2016-12-16 11:50 | disposition home or self-care (01) | DRG 189 ==
LOC: ED 23:54 → CC1 12-14 02:19 → 4A 12-14 14:09
PROVIDERS: ADMIT Internal Medicine; ATTEND Hospitalist
PROC: 5A1D70Z Performance of Urinary Filtration, Intermittent, Less than 6 Hours Per Day (ICD-10-PCS; 2016-12-14)
PROC: 5A09357 Assistance with Respiratory Ventilation, Less than 24 Consecutive Hours, Continuous Positive Airway Pressure (ICD-10-PCS; principal; 2016-12-15)
PROC: 5A1D70Z Performance of Urinary Filtration, Intermittent, Less than 6 Hours Per Day (ICD-10-PCS; 2016-12-15)
DX: J96.01 Acute respiratory failure with hypoxia (principal); N18.6 End stage renal disease; I12.0 Hypertensive chronic kidney disease with stage 5 chronic kidney disease or end stage renal disease; K92.0 Hematemesis; D63.1 Anemia in chronic kidney disease; F17.210 Nicotine dependence, cigarettes, uncomplicated; I16.0 Hypertensive urgency; Z86.711 Personal history of pulmonary embolism; Z82.49 Family history of ischemic heart disease and other diseases of the circulatory system; Z90.49 Acquired absence of other specified parts of digestive tract; Z79.82 Long term (current) use of aspirin; Z71.6 Tobacco abuse counseling
CPT/HCPCS: 36415; 71010; 80048; 80053; 80061; 82550; 82553; 83880; 84484; 85025; 85610; 85730; 93005; 93010; 94760; 96365; 96375; 99406; J1650; J1940

== ENCOUNTER 2021-11-19 04:09 | Inpatient (IN) | payer MEDICARE ==
--- NOTE | 2021-11-19 06:56 | XRay Report ---
CHEST 1 VIEW INDICATION / CLINICAL INFORMATION: shortness of breath. COMPARISON: 12/16/2016 FINDINGS: SUPPORT DEVICES: None. HEART / MEDIASTINUM: Mild cardiomegaly. LUNGS / PLEURA: Mild interstitial pulmonary edema is present. No focal area of consolidation or pleur al effusion. No pneumothorax. ADDITIONAL FINDINGS: No significant additional findings. IMPRESSION: 1. Mild cardiomegaly with mild interstitial pulmonary edema. Signer Name: Jackelin Jacobs MD Signed: 11/19/2021 6:51 AM Workstation Name: [id number]
--- NOTE | 2021-11-19 07:14 | Emergency Department Report ---
HPI - General Chief Complaint: Dyspnea/Respdistress PUI?: No Time Seen by Provider: 11/19/21 06:47 - HPI HPI: 65-year-old female with a history of end-stage renal disease on hemodialysis Tuesday (last hemodialysis was 2 days ago), hypertension, chronic lung disease secondary to COVID-pneumonia requiring supplemental oxygen, 2 L via nasal cannula, brought in by EMS for shortness of breath. Patient states she was getting up for dialysis this morning when she noticed that her oxygen tank had run out of oxygen. She states 1 is supposed to arrive but she has no idea when she will receive it and does not have access to tracking of that oxygen tank replacement. She states she has a residual cough x3 to 4 mo nths secondary to having COVID. She denies any active shortness of breath at this time no chest pain no difficulty breathing no palpitations. Pain currently 0-10. ED Past Medical Hx - Past Medical History Hx Hypertension: Yes Hx Renal Disease: Yes (HD q tue, tue, tue) Additional medical history: PE - Surgical History Past Surgical History?: Yes Additional Surgical History: Shunt - Social History Smoking Status: Unknown if ever smoked - Medications Home Medications: Home Medications Medication Instructions Recorded Confirmed Last Taken Type Aspirin [Adult Low Dose Aspirin EC] 81 mg PO DAILY 12/15/16 12/15/16 12/13/16 History Metoprolol Tartrate 25 mg PO BID 12/15/16 12/15/16 12/13/16 History Valsartan [Diovan] 320 mg PO DAILY 12/15/16 12/15/16 12/13/16 History ED Review of Systems ROS: Stated complaint: SOB Other details as noted in HPI Comment: All other systems reviewed and negative Physical Exam - Physical Exam Vital Signs: Vital Signs 11/19/21 11/19/21 11/19/21 04:16 05:52 06:00 Temperature 98.9 F 97.0 F L Pulse Rate 70 77 70 Respiratory 16 11 L 15 Rate Blood Pressure 140/70 Blood Pressure 191/87 [Right] O2 Sat by Pulse 97 98 Oximetry General: Gen: Chronically ill-appearing female, pt is well appearing, no acute distress HEENT: Normocephalic atraumatic pupils equally round and reactive to light extraocular muscles intact sclera anicteric Neck: Full range of motion, no midline spinal tenderness palpation, no JVD, no carotid bruits, no nuchal rigidity CVS: S1-S2 regular rate and rhythm with no gallops rubs or murmurs, chest wall nontender Pulmonary: Clear to auscultation bilaterally, no wheezes rales or rhonchi Abdomen: Soft nondistended nontender no guarding or rebound tenderness, no palp able deformities or step-offs, normal active bowel sounds, no hepatosplenomegaly, no pulsatile masses : Deferred Extremities: No cyanosis no clubbing no edema, intact distal peripheral pulses, left upper extremity AV fistula Integumentary: Skin normal, no petechia no purpura no abscess no lacerations no evidence of trauma no evidence of infection Neuro: Patient is awake alert and oriented to person place time situation, mentating well, cranial nerves II through XII intact, no focal neurodeficits, sensation grossly tact Psych: Calm cooperative, mood affect normal ED Course Vital Signs 11/19/21 11/19/21 11/19/21 04:16 05:52 06:00 Temperature 98.9 F 97.0 F L Pulse Rate 70 77 70 Respiratory 16 11 L 15 Rate Blood Pressure 140/70 Blood Pressure 191/87 [Right] O2 Sat by Pulse 97 98 Oximetry - Consultations Consultation #1: 11/19/21 09:26am Case reviewed via telephone with Dr Yu, the on-call master machinist. He will review the case and see the patient at her bedside. 011:02am: Case reviewed with Dr. Yu via telephone. I provided him with an update concerning my discussion with case management. Patient needs an oxygen compressor and she does not have 1 and per case management (Nereyda), the patient will not be approved by her medical insurance to receive another one, as the pt confirms she had left it in [facility] with her nephew. They will attempt to obtain a portable oxygen tank which the patient can take home. However the timing of the this is unclear. Per Dr. Yu, pt is not a safe discharge. He is advising that the patient be admitted to the hospitalist service. She will undergo hemodialysis either today or tomorrow. ED Medical Decision Making - Lab Data Result diagrams: 11/19/21 07:27 11/19/21 07:27 - Radiology Data Radiology results: report reviewed - Medical Decision Making 65-year-old female with history of end-stage renal disease on hemodialysis, Tuesday, recent moved from [place], presents with shortness of breath. Vital signs stable. Case management consulted given that the patient states her oxygen tank at home does not have oxygen and she does not have access to her compressor. See patient's electronic health record for case management as documented impression and recommendation and plan. Case reviewed also with on-call master machinist, Dr. Yu. Per his recommendation, the patient is to be admitted to the hospitalist service. She will undergo hemodialysis at that time. Case reviewed via telephone with admitting hospitalist, Dr. Kwan. Patient has been accepted to the hospital service for further management. Critical Care Time: No Critical care attestation.: If time is entered above; I have spent that time in minutes in the direct care of this critically ill patient, excluding procedure time. ED Disposition Clinical Impression: End stage renal disease on dialysis, Hypoxemia Disposition: ADMITTED INPATIENT Is pt being admited?: No Does the pt Need Aspirin: No Condition: Stable
[2021-11-19 08:16] LABS: Eosinophils # (Auto) 0.2 K/mm3 (0.0-0.4); Eosinophils % (Auto) 3.3 % (0.0-4.3); Hemoglobin 9.4 gm/dl (10.1-14.3); Lymphocytes % (Auto) 20.8 % (13.4-35.0); Mean Corpuscular HGB Conc 33 % (30-34); Mean Corpuscular Volume 86 fl (79-97); Monocytes # (Auto) 0.5 K/mm3 (0.0-0.8); Monocytes % (Auto) 10.3 % (0.0-7.3); Platelet Count 161 K/mm3 (140-440); Red Blood Count 3.39 M/mm3 (3.65-5.03); Red Cell Distribution Width 16.4 % (13.2-15.2)
[2021-11-19 08:45] LABS: Albumin 3.9 g/dL (3.9-5); Calcium 9.7 mg/dL (8.4-10.2)
[2021-11-19] MEDS ORDERED: SODIUM CHLORIDE 0.9% 100 ML IV PRN (11:57)
[2021-11-19 13:53] LABS: Hepatitis B Surface Antigen Non-Reactive (Negative); Hepatitis C Virus Antibody Reactive (NonReactive)
[2021-11-19] MEDS ORDERED: HYDROcodone/ACETAMINOPHEN 5-325 MG TAB PO PRN (14:27)
[2021-11-19] MEDS ORDERED: oxyCODONE /ACETAMINOPHEN 5-325MG TAB PO PRN (14:27)
[2021-11-19] MEDS ORDERED: METOCLOPRAMIDE 10 MG/2 ML INJ IV PRN (14:27)
[2021-11-19] MEDS ORDERED: ACETAMINOPHEN 325 MG TAB PO PRN (14:27)
[2021-11-19] MEDS ORDERED: ONDANSETRON 4 MG/2 ML INJ IV PRN (14:27)
[2021-11-19] MEDS ORDERED: NON-FORMULARY EACH (Valsartan [Diovan] 320 MG Tablet) PO SCH (14:30)
--- NOTE | 2021-11-19 14:49 | History and Physical Report ---
History of Present Illness Date of examination: 11/19/21 Date of admission: 11/19/2021 Chief complaint: Increasing shortness of breath History of present illness: 65-year-old -Tongan female with history of end-stage renal disease and hypertension moved from [place] to [facility]. Patient is on 2 L nasal cannula oxygen with her oxygen concentrator. Oxygen concentrator was not transferred to [facility]. Patient is short of breath because of lack of oxygen.. Patient is also on hemodialysis patient. Patient states that she got dialysis yesterday. Patient being admitted for hemodialysis and oxygen supply arrangement. - Past Medical History Hx Hypertension: Yes Hx Renal Disease: Yes (HD q tue, tejas, sat) Additional medical history: PE - Surgical History Past Surgical History?: Yes Additional Surgical History: Shunt - Social History Smoking Status: Unknown if ever smoked - Medications Home Medications: Home Medications Medication Instructions Recorded Confirmed Last Taken Type Aspirin -Tongan female with history of end-stage renal disease 81 mg PO DAILY 12/15/16 12/15/16 12/13/16 History Metoprolol Tartrate 25 mg PO BID 12/15/16 12/15/16 12/13/16 History Valsartan [Diovan] 320 mg PO DAILY 12/15/16 12/15/16 12/13/16 History Review of Systems ROS: Stated complaint: SOB Other details as noted in HPI Comment: All other systems reviewed and negative Medications and Allergies Allergies Allergy/AdvReac Type Severity Reaction Status Date / Time No Known Allergies Allergy Verified 12/14/16 00:12 Home Medications Medication Instructions Recorded Confirmed Last Taken Type Aspirin [Adult Low Dose Aspirin EC] 81 mg PO DAILY 12/15/16 12/15/16 12/13/16 History Metoprolol Tartrate 25 mg PO BID 12/15/16 12/15/16 12/13/16 History Valsartan [Diovan] 320 mg PO DAILY 12/15/16 12/15/16 12/13/16 History Active Meds: Active Medications Sodium Chloride (Nacl 0.9%) 100 mls @ 999 mls/hr IV KARI PRN PRN Reason: Hypotension Exam - Constitutional Vitals: Temp Pulse Resp BP Pulse Ox 97.0 F L 79 14 157/56 97 11/19/21 06:00 11/19/21 13:22 11/19/21 13:22 11/19/21 13:46 11/19/21 14:07 General appearance: Present: mild distress, well-nourished - EENT Eyes: Present: PERRL ENT: hearing intact, clear oral mucosa - Neck Neck: Present: supple, normal ROM - Respiratory Respiratory effort: normal Respiratory: bilateral: CTA - Cardiovascular Heart rate: 78 Rhythm: regular Heart Sounds: Present: S1 & S2. Absent: rub, click - Extremities Extremities: pulses symmetrical, No edema Peripheral Pulses: within normal limits - Abdominal General gastrointestinal: Present: soft, non-tender, non-distended, normal bowel sounds Female genitourinary: Present: normal - Integumentary Integumentary: Present: clear, warm, dry - Musculoskeletal Musculoskeletal: gait normal, strength equal bilaterally - Psychiatric Psychiatric: appropriate mood/affect, intact judgment & insight - Neurologic Neurologic: CNII-XII intact, moves all extremities Results - Labs CBC & Chem 7: 11/19/21 07:27 11/19/21 07:27 Labs: Laboratory Last Values WBC 5.0 K/mm3 (4.5-11.0) 11/19/21 07:27 RBC 3.39 M/mm3 (3.65-5.03) L 11/19/21 07:27 Hgb 9.4 gm/dl (10.1-14.3) L 11/19/21 07:27 Hct 29.0 % (30.3-42.9) L 11/19/21 07:27 MCV 86 fl (79-97) 11/19/21 07:27 MCH 28 pg (28-32) 11/19/21 07:27 MCHC 33 % (30-34) 11/19/21 07:27 RDW 16.4 % (13.2-15.2) H 11/19/21 07:27 Plt Count 161 K/mm3 (140-440) 11/19/21 07:27 Lymph % (Auto) 20.8 % (13.4-35.0) 11/19/21 07:27 [place] % (Auto) 10.3 % (0.0-7.3) H 11/19/21 07:27 Eos % (Auto) 3.3 % (0.0-4.3) 11/19/21 07:27 Baso % (Auto) 1.0 % (0.0-1.8) 11/19/21 07:27 Lymph # (Auto) 1.0 K/mm3 (1.2-5.4) L 11/19/21 07:27 [place] # (Auto) 0.5 K/mm3 (0.0-0.8) 11/19/21 07:27 Eos # (Auto) 0.2 K/mm3 (0.0-0.4) 11/19/21 07:27 Baso # (Auto) 0.0 K/mm3 (0.0-0.1) 11/19/21 07:27 Seg Neutrophils % 64.6 % (40.0-70.0) 11/19/21 07:27 Seg Neutrophils # 3.2 K/mm3 (1.8-7.7) 11/19/21 07:27 Sodium 143 mmol/L (137-145) 11/19/21 07:27 Potassium 4.0 mmol/L (3.6-5.0) 11/19/21 07:27 Chloride 98.8 mmol/L (98-107) 11/19/21 07:27 Carbon Dioxide 32 mmol/L (22-30) H 11/19/21 07:27 Anion Gap 16 mmol/L 11/19/21 07:27 BUN 28 mg/dL (7-17) H 11/19/21 07:27 Creatinine 9.1 mg/dL (0.6-1.2) H 11/19/21 07:27 Estimated GFR 5 ml/min 11/19/21 07:27 BUN/Creatinine Ratio 3 % 11/19/21 07:27 Glucose 87 mg/dL (65-100) 11/19/21 07:27 Calcium 9.7 mg/dL (8.4-10.2) 11/19/21 07:27 Magnesium 2.80 mg/dL (1.7-2.3) H 11/19/21 07:27 Total Bilirubin 0.30 mg/dL (0.1-1.2) 11/19/21 07:27 AST 12 units/L (5-40) 11/19/21 07:27 ALT 8 units/L (7-56) 11/19/21 07:27 Alkaline Phosphatase 86 units/L (35-129) 11/19/21 07:27 Total Protein 6.9 g/dL (6.3-8.2) 11/19/21 07:27 Albumin 3.9 g/dL (3.9-5) 11/19/21 07:27 Albumin/Globulin Ratio 1.3 % 11/19/21 07:27 Hepatitis A IgM Ab Non-reactive (NonReactive) 11/19/21 12:07 Hep Bs Antigen Non-reactive (Negative) 11/19/21 12:07 Hep B Core IgM Ab Non-reactive (NonReactive) 11/19/21 12:07 Hepatitis C Antibody Reactive (NonReactive) A 11/19/21 12:07 Short CBC 11/19/21 Range/Units 07:27 WBC 5.0 (4.5-11.0) K/mm3 Hgb 9.4 L (10.1-14.3) gm/dl Hct 29.0 L (30.3-42.9) % Plt Count 161 (140-440) K/mm3 BMP 11/19/21 07:27 Sodium 143 Potassium 4.0 Chloride 98.8 Carbon Dioxide 32 H BUN 28 H Creatinine 9.1 H Glucose 87 Calcium 9.7 Liver Function 11/19/21 Range/Units 07:27 Total Bilirubin 0.30 (0.1-1.2) mg/dL AST 12 (5-40) units/L ALT 8 (7-56) units/L Alkaline Phosphatase 86 (35-129) units/L Albumin 3.9 (3.9-5) g/dL Assessment and Plan Advance Directives: Yes (Full code) VTE prophylaxis?: Chemical Plan of care discussed with patient/family: Yes - Patient Problems (1) Acute respiratory failure with hypoxia Current Visit: Yes Status: Acute Plan to address problem: Secondary to lack of oxygen at home Patient is on oxygen at 2 L nasal cannula Patient wears oxygen supplies and oxygen concentration Event involved (2) End-stage renal disease on hemodialysis Current Visit: Yes Status: Chronic Plan to address problem: Continue hemodialysis as per schedule Nephrology consulted (3) Hypertension Current Visit: Yes Status: Chronic Qualifiers: Hypertension type: primary hypertension Qualified Code(s): I10 - Essential (primary) hypertension Plan to address problem: Continue antihypertensives (4) DVT prophylaxis Current Visit: Yes Status: Acute Plan to address problem: On heparin and GI prophylaxis (5) Advance care planning Current Visit: Yes Status: Acute Plan to address problem: Disease education conducted, care plan discussed, diagnosis and prognosis discussed. Patient is full code. Patient acknowledges understanding of the care plan. +30 minutes.
--- NOTE | 2021-11-19 16:17 | Event Note ---
Date: 11/19/21 Full consult dictated - pt tested Hep C Ab +, unclear why drawn - will order Hep C VL - further management as outpt
--- NOTE | 2021-11-19 17:34 | Consultation ---
DATE OF CONSULTATION: 11/19/2021 INDICATIONS: Hepatitis C. HISTORY: The patient is a 65-year-old black female with history of end-stage renal disease, on dialysis; hypertension as well as chronic lung disease and recent COVID pneumonia; now being seen by GI for hepatitis C being positive. The patient presented and was admitted for shortness of breath and feeling that her tank was running out of oxygen. The patient denies a history of known liver disease. She denies a history of hepatitis. She denies any jaundice. She denies any known history of increased liver function tests. The patient has never been told she was hep C positive. No other specific complaints. PAST MEDICAL HISTORY: * End-stage renal disease, on dialysis. * Hypertension. * Lung disease. MEDICATIONS: Reviewed and updated in chart. ALLERGIES: No known drug allergies. SOCIAL HISTORY: Denies alcohol, tobacco or drug abuse. FAMILY HISTORY: Negative for colon cancer, IBD, or liver disease. REVIEW OF SYSTEMS: GENERAL: Reports some weakness. HEENT: Denies visual complaints or tinnitus. PULMONARY: Denies shortness of breath, chest pain. GASTROINTESTINAL: Denies any complaints. All points of 13-point review of system otherwise negative. PHYSICAL EXAMINATION: VITAL SIGNS: Temperature of 98.7, pulse 79, respirations 18, blood pressure 176/71. GENERAL: Fairly thin black female, in no acute distress. HEENT: Pupils round and reactive. PULMONARY: No rhonchi. CARDIOVASCULAR: Regular rate and rhythm. Normal S1, S2. ABDOMEN: Positive bowel sounds, soft. SKIN: No obvious rashes. LABORATORY DATA: Pertinent for white count of 5.0, hemoglobin and hematocrit of 9.4 and 29, platelet count of 161. Chem-7 within normal limits except for BUN and creatinine of 28 and 9.1. LFTs within normal limits. Hep C antibody positive. ASSESSMENT: A 65-year-old black female with history of end-stage renal disease, hypertension, chronic lung disease, presented with pulmonary related issues, now noted to be hep C antibody positive. It is unclear to me as to why the hep C antibody was drawn. The patient has no increased liver function tests and denies a known history of liver disease. That said, the patient is tested hep C antibody positive. Further management can be done as an outpatient. Management as noted below. PLAN: * We will order hepatitis C viral load. * Continue current medications and diet. * If there is need for hepatitis C treatment, can be done as an outpatient. * The patient can be discharged from GI standpoint with followup as an outpatient. TID: [id number] RECEIPT: [id number] NAVA/TARAH/THOMAS
[2021-11-19] MEDS: METOPROLOL TARTRATE 25 MG TAB PO SCH ×2 (18:25→21:35)
[2021-11-19] MEDS: VALSARTAN 160MG TAB PO SCH (18:25)
[2021-11-19] MEDS: ASPIRIN EC 81 MG TAB PO SCH (18:25)
[2021-11-19] MEDS: HEPARIN 5,000 UNIT/1 ML VIAL SUB-Q SCH ×2 (18:25→21:35)
--- NOTE | 2021-11-19 21:53 | Consultation ---
History of Present Illness - Reason for Consult Consult date: 11/19/21 end stage renal disease - History of Present Illness This is a 65 year-old woman with ESRD who presents for need for home oxygen. States her home oxygen ran out and came to ED. Patient usually dialyzes // at [facility]. She recently moved to this area from [place], and has been dialyzing at that facility for past 2-3 weeks, but she is unaware of who her supervisor mill is. Denies any recent issues with HD, including dizziness, lightheadedness, cramping, chest pain on HD. Currently, patient denies any issues including dyspnea, edema, access issues, nausea, vomiting, headaches. Past History Past Medical History: COPD, ESRD Past Surgical History: No surgical history Social history: no significant social history Family history: no significant family history Medications and Allergies Allergies Allergy/AdvReac Type Severity Reaction Status Date / Time No Known Allergies Allergy Verified 12/14/16 00:12 Home Medications Medication Instructions Recorded Confirmed Last Taken Type Aspirin [Adult Low Dose Aspirin EC] 81 mg PO DAILY 12/15/16 12/15/16 12/13/16 History Metoprolol Tartrate 25 mg PO BID 12/15/16 12/15/16 12/13/16 History Valsartan [Diovan] 320 mg PO DAILY 12/15/16 12/15/16 12/13/16 History Active Meds: Active Medications Acetaminophen (Acetaminophen 325 Mg Tab) 650 mg PO Q4H PRN PRN Reason: Pain MILD(1-3)/Fever >100.5/CLAUDIO Hydrocodone Bitart/Acetaminophen (Hydrocodone/Acetaminophen 5-325 Mg Tab) 2 each PO Q6H PRN PRN Reason: Pain, Moderate (4-6) Aspirin (Aspirin Ec 81 Mg Tab) 81 mg PO DAILY [facility] Last Admin: 11/19/21 18:25 Dose: Not Given Famotidine (Famotidine 20 Mg Tab) 20 mg PO BID [facility] Last Admin: 11/19/21 21:35 Dose: 20 mg Heparin Sodium (Porcine) (Heparin 5,000 Unit/1 Ml Vial) 5,000 unit SUB-Q Q12HR [facility] Last Admin: 11/19/21 21:35 Dose: 5,000 unit Sodium Chloride (Nacl 0.9%) 100 mls @ 999 mls/hr IV KARI PRN PRN Reason: Hypotension Metoclopramide HCl (Metoclopramide 10 Mg/2 Ml Inj) 10 mg IV Q6H PRN PRN Reason: Nausea And Vomiting Metoprolol Tartrate (Metoprolol Tartrate 25 Mg Tab) 25 mg PO BID [facility] Last Admin: 11/19/21 21:35 Dose: 25 mg Ondansetron HCl (Ondansetron 4 Mg/2 Ml Inj) 4 mg IV Q8H PRN PRN Reason: Nausea And Vomiting Oxycodone/Acetaminophen (Oxycodone /Acetaminophen 5-325mg Tab) 1 tab PO Q6H PRN PRN Reason: Pain, Moderate (4-6) Sodium Chloride (Sodium Chloride 0.9% 10 Ml Flush Syringe) 10 ml IV BID [facility] Last Admin: 11/19/21 18:25 Dose: Not Given Sodium Chloride (Sodium Chloride 0.9% 10 Ml Flush Syringe) 10 ml IV PRN PRN PRN Reason: LINE FLUSH Valsartan (Valsartan 160mg Tab) 320 mg PO QDAY [facility] Last Admin: 11/19/21 18:25 Dose: Not Given Review of Systems All systems: negative (as per HPI) Exam - Vital Signs Vital signs: Vital Signs Temp Pulse Resp BP Pulse Ox 98.9 F 70 16 140/70 97 11/19/21 04:16 11/19/21 04:16 11/19/21 04:16 11/19/21 04:16 11/19/21 04:16 - Physical Exam Narrative exam: Constitutional: no acute distress Head: NC/AT Neck: supple Lungs: clear to auscultation, on NC CV: RRR, no M/R/G Abdomen: soft, non-tender, bowel sounds present Back: nontender Extremities: no edema, pulses WNL Skin: intact Neuro: no focal deficits, alert and oriented x4 Results - Lab Results 11/19/21 07:27 11/19/21 07:27 Most recent lab results Calcium 9.7 mg/dL (8.4-10.2) 11/19/21 07:27 Magnesium 2.80 mg/dL (1.7-2.3) H 11/19/21 07:27 Assessment and Plan This is a 65 year old woman who presents with need for home O2 # ESRD: continue HD // while in-hospital, plan for HD today as she remains in ED. - daily labs, note mild alkalosis, adjust dialysate prn - renally dose meds - avoid nephrotoxins - renal diet - verbal consent obtained for HD # Anemia: last hemoglobin 9.4, continue ESAs with HD # HTN: UF as tolerated. BP stable # Secondary Hyperparathyroidism: continue home binders as needed, vitamin D analogs prn
[2021-11-19] MEDS ORDERED: FAMOTIDINE 20 MG TAB PO SCH (22:00)
--- NOTE | 2021-11-20 07:31 | Gastroenterology Progress Note ---
Assessment and Plan 1. GI: pt w/ Hep C +, nl LFT's - no other GI or liver complaints - Hep C VL ordered, will f/u as outpt - no need [id number] GI input - will sign off, call if needed Subjective Date of service: 11/20/21 Interval history: - no GI complaints overnight Objective - Constitutional Vitals: Temp Pulse Resp BP Pulse Ox 98.4 F 74 20 165/74 97 11/20/21 04:56 11/20/21 04:56 11/20/21 04:56 11/20/21 04:56 11/20/21 04:56 General appearance: no acute distress - EENT Eyes: PERRL - Respiratory Respiratory: bilateral: CTA - Cardiovascular Rhythm: regular Heart Sounds: Present: S1 & S2 - Gastrointestinal General gastrointestinal: Present: soft, non-tender, non-distended - Labs CBC & Chem 7: 11/19/21 07:27 11/19/21 07:27 Labs: Laboratory Results - last 24 hr 11/19/21 11/19/21 11/19/21 07:27 07:27 12:07 WBC 5.0 RBC 3.39 L Hgb 9.4 L Hct 29.0 L MCV 86 MCH 28 MCHC 33 RDW 16.4 H Plt Count 161 Lymph % (Auto) 20.8 [place] % (Auto) 10.3 H Eos % (Auto) 3.3 Baso % (Auto) 1.0 Lymph # (Auto) 1.0 L [place] # (Auto) 0.5 Eos # (Auto) 0.2 Baso # (Auto) 0.0 Seg Neutrophils % 64.6 Seg Neutrophils # 3.2 Sodium 143 Potassium 4.0 Chloride 98.8 Carbon Dioxide 32 H Anion Gap 16 BUN 28 H Creatinine 9.1 H Estimated GFR 5 BUN/Creatinine Ratio 3 Glucose 87 Calcium 9.7 Magnesium 2.80 H Total Bilirubin 0.30 AST 12 ALT 8 Alkaline Phosphatase 86 Total Protein 6.9 Albumin 3.9 Albumin/Globulin Ratio 1.3 Hepatitis A IgM Ab Non-reactive Hep Bs Antigen Non-reactive Hep B Core IgM Ab Non-reactive Hepatitis C Antibody Reactive A
[2021-11-20 08:26] LABS: Basophils # (Auto) 0.1 K/mm3 (0.0-0.1); Basophils % (Auto) 1.4 % (0.0-1.8); Eosinophils # (Auto) 0.2 K/mm3 (0.0-0.4); Eosinophils % (Auto) 5.1 % (0.0-4.3); Hematocrit 30.5 % (30.3-42.9); Hemoglobin 10.1 gm/dl (10.1-14.3); Lymphocytes # (Auto) 1.2 K/mm3 (1.2-5.4); Mean Corpuscular HGB Conc 33 % (30-34); Mean Corpuscular Volume 85 fl (79-97); Monocytes # (Auto) 0.6 K/mm3 (0.0-0.8); Monocytes % (Auto) 13.9 % (0.0-7.3); Platelet Count 168 K/mm3 (140-440); Red Blood Count 3.58 M/mm3 (3.65-5.03); Red Cell Distribution Width 15.5 % (13.2-15.2)
[2021-11-20 08:43] LABS: Albumin 3.8 g/dL (3.9-5); Calcium 9.5 mg/dL (8.4-10.2)
[2021-11-20] MEDS ORDERED: METOCLOPRAMIDE 10 MG/2 ML INJ IV PRN (09:00)
[2021-11-20] MEDS ORDERED: FAMOTIDINE 20 MG TAB PO SCH (10:00)
--- NOTE | 2021-11-20 10:33 | Electrocardiograph Report ---
[facility] Test Date: 2021-11-19 Test Time: 21:50:19 Pat Name: KATARZYNA TERRAZAS Department: Room: A391 1 Gender: F [employer]: [employer] : [id number] Requested By: ANCA CAO Order Number: [id number] Reading MD: Jose Carlos Damon Measurements Intervals Delta Rate: 75 P: 59 WA: 126 QRS: 38 QRSD: 73 T: 63 QT: 478 QTc: 534 Interpretive Statements Sinus rhythm Left ventricular hypertrophy Anterior infarct, old Prolonged QT interval No previous ECG available for comparison Electronically Signed On 11-20-2021 10:33:10 EDT by Jose Carlos Damon
[2021-11-20] MEDS: ASPIRIN EC 81 MG TAB PO SCH (11:16)
[2021-11-20] MEDS: VALSARTAN 160MG TAB PO SCH (11:18)
[2021-11-20] MEDS: METOPROLOL TARTRATE 25 MG TAB PO SCH (11:19)
[2021-11-20] MEDS ORDERED: HEPARIN 5,000 UNIT/1 ML VIAL SUB-Q SCH (14:00)
--- NOTE | 2021-11-20 14:21 | Progress Note ---
Assessment and Plan This is a 65 year old woman who presents with need for home O2 # ESRD: continue HD // while in-hospital, s/p 11/19, no need for HD today - daily labs, adjust dialysate prn - renally dose meds - avoid nephrotoxins - renal diet - verbal consent obtained for HD # Anemia: last hemoglobin 9.4->10.1, continue ESAs with HD as needed # HTN: UF as tolerated. BP stable # Secondary Hyperparathyroidism: continue home binders as needed, vitamin D analogs prn Subjective Date of service: 11/20/21 Interval history: No issues today, no issues noted with HD yesterday Objective - Exam Narrative Exam: Constitutional: no acute distress Head: NC/AT Neck: supple Lungs: clear to auscultation, on NC CV: RRR, no M/R/G Abdomen: soft, non-tender, bowel sounds present Back: nontender Extremities: no edema, pulses WNL Skin: intact Neuro: no focal deficits, alert and oriented x4 - Vital Signs Vital signs: Vital Signs - 12hr 11/20/21 11/20/21 11/20/21 03:12 04:56 11:18 Temperature 98.4 F Pulse Rate 74 75 Respiratory 16 20 Rate Blood Pressure 165/74 167/76 O2 Sat by Pulse 98 97 Oximetry 11/20/21 11/20/21 11:19 12:26 Temperature 98.7 F Pulse Rate 75 69 Respiratory 18 Rate Blood Pressure 167/76 168/69 O2 Sat by Pulse 99 Oximetry - Lab 11/20/21 07:58 11/20/21 07:58 Most recent lab results Calcium 9.5 mg/dL (8.4-10.2) 11/20/21 07:58 Magnesium 2.80 mg/dL (1.7-2.3) H 11/19/21 07:27 Medications & Allergies - Medications Allergies/Adverse Reactions: Allergies No Known Allergies Allergy (Verified 11/20/21 08:59) Home Medications: Home Medications Medication Instructions Recorded Confirmed Last Taken Type Aspirin [Adult Low Dose Aspirin EC] 81 mg PO DAILY 12/15/16 11/20/21 12/13/16 History Metoprolol Tartrate 25 mg PO BID 12/15/16 11/20/21 12/13/16 History Losartan [Cozaar] 25 mg PO BID 11/20/21 11/20/21 Unknown History Active Medications: Generic Name Dose Route Start Last Admin Trade Name Eamon PRN Reason Stop Dose Admin Acetaminophen 650 mg 11/19/21 14:27 Acetaminophen 325 Mg Tab PO Q4H PRN Pain MILD(1-3)/Fever >100.5/CLAUDIO Hydrocodone Bitart/Acetaminophen 2 each 11/19/21 14:27 Hydrocodone/Acetaminophen 5-325 Mg Tab PO Q6H PRN Pain, Moderate (4-6) Aspirin 81 mg 11/19/21 15:00 11/20/21 11:16 Aspirin Ec 81 Mg Tab PO 81 mg DAILY MARIBELL Administration Famotidine 20 mg 11/20/21 10:00 11/20/21 11:16 Famotidine 20 Mg Tab PO 20 mg DAILY MARIBELL Administration Heparin Sodium (Porcine) 5,000 unit 11/20/21 14:00 11/20/21 13:49 Heparin 5,000 Unit/1 Ml Vial SUB-Q 5,000 unit Q8HR MARIBELL Administration Sodium Chloride 100 mls @ 999 mls/hr 11/19/21 11:57 Nacl 0.9% IV KARI PRN Hypotension Metoclopramide HCl 5 mg 11/20/21 09:00 Metoclopramide 10 Mg/2 Ml Inj IV Q8H PRN Nausea And Vomiting Metoprolol Tartrate 25 mg 11/19/21 15:00 11/20/21 11:19 Metoprolol Tartrate 25 Mg Tab PO 25 mg BID MARIBELL Administration Ondansetron HCl 4 mg 11/19/21 14:27 Ondansetron 4 Mg/2 Ml Inj IV Q8H PRN Nausea And Vomiting Oxycodone/Acetaminophen 1 tab 11/19/21 14:27 Oxycodone /Acetaminophen 5-325mg Tab PO Q6H PRN Pain, Moderate (4-6) Sodium Chloride 10 ml 11/19/21 15:00 11/20/21 13:56 Sodium Chloride 0.9% 10 Ml Flush Syringe IV 10 ml BID MARIBELL Administration Sodium Chloride 10 ml 11/19/21 14:27 Sodium Chloride 0.9% 10 Ml Flush Syringe IV PRN PRN LINE FLUSH Valsartan 320 mg 11/19/21 15:00 11/20/21 11:18 Valsartan 160mg Tab PO 320 mg QDAY MARIBELL Administration
--- NOTE | 2021-11-20 17:07 | Discharge Summary ---
Providers - Providers Date of Admission: 11/19/21 14:27 Date of discharge: 11/20/21 Attending physician: OSCAR DUKE MD 11/19/21 06:47 Consult to Case Management [CONS] Stat Services Needed at Discharge: Other Home O2 Notified:: pt on home 02; recent move from [facility]; ran out of o2 ; no tank at 11/19/21 14:27 Consult to Physician [CONS] Routine Comment: Consulting Provider: APRIL PRESLEY Physician Instructions: Reason For Exam: ESRd on HD 11/19/21 14:46 Consult to Physician [CONS] Routine Comment: Consulting Provider: CONCEPCION SÁNCHEZ Physician Instructions: Reason For Exam: Hep C positive 11/20/21 07:16 Consult to Case Management [CONS] Routine Services Needed at Discharge: Home Health Services Notified:: cm Comment:: Case management to arrange for an oxygen concentrator and home oxygen Additional Physician Instructions: Patient has relocated from [facility] Primary care physician: KENNEDI MCGUIRE Hospitalization Reason for admission: Chronic hypoxic respiratory failure Condition: Stable Pertinent studies: Reviewed. Procedures: None. Hospital course: The patient is a 65-year-old female with past medical history of ESRD on hemodialysis, hypertension, history of pulmonary embolism, and chronic hypoxic respiratory failure (home oxygen requirement 2 L nasal cannula) who presented to the ED with shortness of breath because of a lack of oxygen at home. Patient describes having low dialysis 1 day prior to presentation. On arrival to the ED, the patient was found to be hemodynamically stable with relatively unremarkable labs (in relation to her current medical conditions). Case management was consulted regarding obtaining home oxygen with a concentrator for the patient. Nephrology was consulted for management of hemodialysis needs. Oxygen has been arranged to be delivered at the patient's home. Patient is medically clear for discharge. Disposition: 01 HOME / SELF CARE / HOMELESS Final Discharge Diagnosis (Prints w/discharge instructions): Chronic hypoxic respiratory failure, end-stage renal disease on hemodialysis, hypertension. Time spent for discharge: 45 min Core Measure Documentation - Palliative Care Palliative Care/ Comfort Measures: Not Applicable - Core Measures Any of the following diagnoses?: history only Exam - Constitutional Vitals: Temp Pulse Resp BP Pulse Ox 98.7 F 69 18 168/69 99 11/20/21 12:26 11/20/21 12:26 11/20/21 12:26 11/20/21 12:26 11/20/21 12:26 General appearance: Present: no acute distress, well-nourished - EENT Eyes: Present: PERRL, EOM intact ENT: hearing intact, clear oral mucosa, dentition normal - Neck Neck: Present: supple, normal ROM - Respiratory Respiratory effort: normal Respiratory: bilateral: diminished (On 2 L nasal cannula (baseline 2 L nasal cannula)) - Cardiovascular Rhythm: regular Heart Sounds: Present: S1 & S2 - Extremities Extremities: no ischemia, pulses intact, pulses symmetrical, No edema, normal temperature, normal color, Full ROM, abnormal (AV fistula left upper extremity with palpable thrill) Peripheral Pulses: within normal limits - Abdominal General gastrointestinal: Present: soft, non-tender, non-distended, normal bowel sounds Female genitourinary: Present: deferred - Rectal Rectal Exam: deferred - Integumentary Integumentary: Present: clear, warm, dry - Musculoskeletal Musculoskeletal: strength equal bilaterally - Psychiatric Psychiatric: appropriate mood/affect, intact judgment & insight, cooperative - Neurologic Neurologic: CNII-XII intact, moves all extremities - Allied Health Allied health notes reviewed: nursing, social work, case management Plan Activity: no restrictions Diet: low salt Additional Instructions: The patient is a 65-year-old female with past medical history of ESRD on hemodialysis, hypertension, history of pulmonary embolism, and chronic hypoxic respiratory failure (home oxygen requirement 2 L nasal cannula) who presented to the ED with shortness of breath because of a lack of oxygen at home. Patient describes having low dialysis 1 day prior to presentation. On arrival to the ED, the patient was found to be hemodynamically stable with relatively unremarkable labs (in relation to her current medical conditions). Case management was consulted regarding obtaining home oxygen with a concentrator for the patient. Nephrology was consulted for management of hemodialysis needs. Oxygen has been arranged to be delivered at the patient's home. Patient is medically clear for discharge. Care Plan Goals: Patient is medically clear for discharge. Assessment: The patient is a 65-year-old female with past medical history of ESRD on hemodialysis, hypertension, history of pulmonary embolism, and chronic hypoxic respiratory failure (home oxygen requirement 2 L nasal cannula) who presented to the ED with shortness of breath because of a lack of oxygen at home. Patient describes having low dialysis 1 day prior to presentation. On arrival to the ED, the patient was found to be hemodynamically stable with relatively unremarkable labs (in relation to her current medical conditions). Case management was consulted regarding obtaining home oxygen with a concentrator for the patient. Nephrology was consulted for management of hemodialysis needs. Oxygen has been arranged to be delivered at the patient's home. Patient is medically clear for discharge. Follow up with: KENNEDI MCGUIRE MD [Primary Care Provider] - 3-5 Days
[2021-11-20 18:29] VITALS: BP 146/84
== END 2021-11-20 18:57 | disposition home or self-care (01) | DRG 682 ==
LOC: ED 04:09 → 3A 14:27
PROVIDERS: ADMIT Internal Medicine; ATTEND Student in an Organized Health Care Education/Training Program
PROC: 5A1D70Z Performance of Urinary Filtration, Intermittent, Less than 6 Hours Per Day (ICD-10-PCS; principal; 2021-11-19)
DX: I12.0 Hypertensive chronic kidney disease with stage 5 chronic kidney disease or end stage renal disease (principal); N18.6 End stage renal disease; N25.81 Secondary hyperparathyroidism of renal origin; J96.11 Chronic respiratory failure with hypoxia; Z99.2 Dependence on renal dialysis; J44.9 Chronic obstructive pulmonary disease, unspecified; D64.9 Anemia, unspecified; Z79.82 Long term (current) use of aspirin; B19.20 Unspecified viral hepatitis C without hepatic coma
CPT/HCPCS: 36415; 71045; 80053; 80074; 83735; 85025; 87517; 93005; 99285; G0378; J1644